=== PATIENT | female | born 1980 | race Caucasian/White ===

== ENCOUNTER 2023-05-05 19:25 | Outpatient (REF) | payer OTHER, SELFPAY ==
[2023-05-11 14:08] LABS: Age Gdln ACOG Testing Note (.); HPV Aptima Negative (Negative); IGP, Aptima HPV, rfx 16/18,45 Note (.)
== END 2023-05-05 19:26 | disposition home or self-care (01) ==
LOC: LAB 19:25
PROVIDERS: Visit Provider Physician Assistant
DX: Z01.419 Encounter for gynecological examination (general) (routine) without abnormal findings (principal)
CPT/HCPCS: 87624; G0145

== ENCOUNTER 2023-05-13 08:04 | Outpatient (OUT) | payer OTHER, SELFPAY ==
--- NOTE | 2023-05-13 08:07 | MM_ITS ---
Patient Name: LEXUS DAVIDSON MR#: [id number] : 1980 Exam Date: 05/13/2023 Ordering Doctor: ARIEL JIM . RADIOLOGY REPORT PROCEDURE: MM TOMOSYNTHESIS SCREENING BI COMPARISON: MG MAMM SCREEN 3D [place] CAD, 11/16/2020. INDICATIONS: screening Calculator Name NCI Breast Cancer Risk Assessment Tool 5 Year Breast Cancer Risk Not Reported. Lifetime Breast Cancer Risk Not Reported. Personal Breast Cancer No Personal Ovarian Cancer No Treatments None Family Cancers None LOCATION: [facility] BREAST COMPOSITION: Scattered areas fibroglandular density. FINDINGS: DIAGNOSTIC CATEGORY 2--BENIGN FINDING. NO CHANGE FROM COMPARISON. Scattered benign-appearing nodules are present. Scattered benign-appearing calcifications are present. Scattered benign-appearing lymph nodes are present. RIGHT BREAST: No significant suspicious finding. LEFT BREAST: No significant suspicious finding. RECOMMENDATIONS: ROUTINE MAMMOGRAM AND CLINICAL EVALUATION IN 12 MONTHS. PLEASE NOTE: A NORMAL MAMMOGRAM DOES NOT EXCLUDE THE POSSIBILITY OF BREAST CANCER. A CLINICALLY SUSPICIOUS PALPABLE LUMP SHOULD BE BIOPSIED. Dictated by: Neil Padilla MD on 05/13/2023 at 11:26 Approved by: Neil Padilla MD on 05/13/2023 at 11:27
--- OUTSIDE RECORDS SUMMARY | 2023-05-13 08:07 | XMS_ITS | CCD ---
Author Name Unknown Address [address] [place] [address] Organization [facility] Care Team Providers Care Recorder Of Deeds Name Role Phone Jose Petersen Unavailable Unavailable NEGRITA BEAN Unavailable Unavailable Jose Petresen Unavailable Unavailable NEGRITA BEAN Unavailable Unavailable DR MEGAN ELIZABETH Primary Care Unavailable AMBER COMBS Consulting Unavailable AMBER COMBS Attending Unavailable AMBER COMBS Admitting Unavailable BRUCE JIM Attending Unavailable Allergies Allergy Classification Reported Allergen(s) Allergy Type Date of Onset Reaction(s) Facility (1 source) Clarithromycin Drug Allergy The [facility] Repository Problems Active Problems Problem Classification Problem Date Documented Da te Episodic/Chronic Unclassified (3 sources) CONTACT W/AND (SUSP) EXPOS COVID-19; Translations: [CONTACT W/AND (SUSP) EXPOS COVID-19] Onset: 01-23-2022 Past or Other Problems Problem Classification Problem Date Documented Da te Episodic/Chronic Unclassified (1 source) CONTACT W/AND (SUSP) EXPOS COVID-19; Translations: [CONTACT W/AND (SUSP) EXPOS COVID-19] Onset: 01-22-2022 Results Test Name Value Interpretation Reference Range Facil ity Covid-19 PCR (CVDTBH)on 12-25 SARS-CoV-2 (COVID-19) RNA ERASMO+probe Ql (Unsp spec) Not detected Normal NOT DETECTED The [facility] Comment on above: Result Comment: When diagnostic testing is negative, the possibility of a false negative should be considered in the context of a patient's recent exposures and the presence of clinical signs and symptoms consistent with SARS-CoV-2. This test is not yet approved or cleared by the [place] FDA. When there are no FDA-approved or cleared tests available, and other criteria are met, FDA can make tests available under an emergency access mechanism called an Emergency Use Authorization (EUA). The EUA for this test is supported by the [place]edded [employer] [place] of Health and Human Service's declaration that circumstances exist to justify the emergency use of in vitro diagnostics for the detection and/or diagnosis of the virus that causes COVID-19. This EUA will remain in effect for the duration of the COVID-19 declaration justifying emergency of IVDs, unless it is terminated or revoked by the FDA (after which the test may no longer be used). Performed By: #### C [facility] #### [facility] Laboratory [address] [address] [address] Renu Clark Encounters Encounter Date Encounter Type Care Provider Facility Start: 05-05-2023 End: 05-05-2023 ambulatory BRUCE JIM Not Available Start: 01-22-2022 End: 01-22-[address] DOCTOR ELIZABETH Facility: Start: 05-11-2017 End: 05-12-2017 [facility] Payers Date Payer Category Payer [employer] ( and others) [id number] 1980 Unknown [id number] 1980 Unknown [id number] 1959 [employer] ( and others) [id number] Summary Purpose Family History No Family History Records FoundNo Family History Records FoundNo Family History Records Found Advance Directives No Advanced Directives Records FoundNo Advanced Directives Records FoundNo Advanced Directives Records Found Additional Source Comments INFORMATION SOURCE (unrecogn ized section and content) DATE CREATED AUTHOR 11/17/2017 [facility] DATE CREATED AUTHOR AUTHOR'S ORGANIZ ATION 05/17/2022 [facility] DATE CREATED AUTHOR AUTHOR'S ORGANIZ ATION 05/07/2023 [facility] Specialists EPIC FOR RECORDS PERTAINING TO PATIENTS WHO ARE OR HAVE BEEN ENROLLED IN A CHEMICAL DEPENDENCY/SUBSTANCEABUSE PROGRAM, SOME INFORMATION MAY BE OMITTED. This clinical summary was aggregated from multiple sources. Caution should be exercised in using it in the provision of clinical care. This summary normalizes information from multiple sources, and as a consequence, information in this document may materially change the coding, format and clinical context of patient data. In addition, data may be omitted in some cases. CLINICAL DECISIONS SHOULD BE BASED ON THE PRIMARY CLINICAL RECORDS. [employer] [facility]. provides no warranty or guarantee of the accuracy or completeness of information in this document.
== END 2023-05-13 08:05 | disposition home or self-care (01) ==
LOC: MAMMO 08:05
PROVIDERS: Visit Provider Physician Assistant
DX: Z12.31 Encounter for screening mammogram for malignant neoplasm of breast (principal)
CPT/HCPCS: 77063; 77067

== ENCOUNTER 2023-12-16 09:17 | Outpatient (OUT) | payer OTHER, SELFPAY ==
--- OUTSIDE RECORDS SUMMARY | 2023-12-16 09:25 | XMS_ITS | CCD ---
Author Organization [facility] Care Team Providers Care Precision Instrument And Tool Maker Name Role Phone DenisshondaJose das Unavailable Unavailable RAWLSNEGRITA KELLY Unavailable Unavailable Jose Petersen Unavailable Unavailable GENEVA NEGRITA Unavailable Unavailable DR MEGAN ELIZABETH Primary Care Unavailable AMBER COMBS Consulting Unavailable AMBER COMBS Attending Unavailable AMBER COMBS Admitting Unavailable LINA DELGADO Attending Unavailable BRUCE JIM Attending Unavailable Allergies Allergy Classification Reported Allergen(s) Allergy Type Date of Onset Reaction(s) Facility (1 source) Clarithromycin Drug Allergy The [facility] Repository Problems Active Problems Problem Classification [...] spec) Not detected Normal NOT DETECTED [facility] Comment on above: Result Comment: When diagnostic [...] for this test is supported by the [place] of Health and Human Service's declaration that [...] longer be used). Performed By: #### C [facility] #### [facility] [address] [address] [address] Renu Clark Encounters Encounter Date Encounter Type Care Provider Facility Start: 08-25-2023 End: 08-25-2023 ambulatory LINA DELGADO Not Available Start: 05-05-2023 End: 05-05-2023 ambulatory BRUCE JIM Not Available Start: 01-22-2022 End: 01-22-[address] DOCTOR ELIZABETH Facility: Start: 05-11-2017 End: 05-12-2017 Ambulatory Jose Petersen Facility:[facility] Payers Date Payer Category Payer [employer] ( and others) [id number] 1980 Unknown [id number] 1980 Unknown [id number] 1980 Unknown [id number] 1959 [employer] ( and others) [id number] Summary Purpose Family History No Family History Records FoundNo Family History Records FoundNo Family History Records Found Advance Directives No Advanced Directives Records FoundNo Advanced Directives Records FoundNo Advanced Directives Records Found Additional Source Comments INFORMATION SOURCE (unrecogn ized section and content) DATE CREATED AUTHOR [facility] DATE CREATED AUTHOR AUTHOR'S ORGANIZ ATION 05/17/2022 [facility] DATE CREATED AUTHOR AUTHOR'S ORGANIZ ATION 08/26/2023 [facility] dicri Specialists EPIC FOR RECORDS PERTAINING TO PATIENTS [...] BE BASED ON THE PRIMARY CLINICAL RECORDS. [facility]. provides no warranty or guarantee of the accuracy or completeness of information in this document.
--- NOTE | 2023-12-16 09:27 | XR_ITS ---
The [address] [address] Patient Name: LEXUS DAVIDSON MRN: [id number] date: 1980 Sex: F Assigned Patient Location: [facility] Current Patient Location: Accession/Order Number: [id number] Exam Date: 12/16/2023 09:35 Report Date: 12/17/2023 07:21 At the request of: LOREN SINGH Procedure: XR ankle LT min 3V PROCEDURE: XR ankle LT min 3V COMPARISON: None. HISTORY: Acute Left Ankle Pain M25.572, Achilles Tendonitis Left FINDINGS: BONES:No acute fracture or dislocation. Minimal plantar enthesopathic spurring of the calcaneus SOFT TISSUES:Negative. No visible soft tissue swelling. EFFUSION:None visible. OTHER: Negative. XR/XR ankle LT min 3V IMPRESSION: No acute abnormality Electronically authenticated by: SCOTTY ALMEIDA Date: 12/17/2023 07:21
== END 2023-12-16 09:18 | disposition home or self-care (01) ==
PROVIDERS: Visit Provider Personal Emergency Response Attendant
DX: M25.572 Pain in left ankle and joints of left foot (principal); M76.62 Achilles tendinitis, left leg
CPT/HCPCS: 73610

== ENCOUNTER 2023-12-17 14:31 | Outpatient (OUT) | payer OTHER, SELFPAY ==
--- NOTE | 2023-12-17 14:34 | MR_ITS ---
The [address] [address] Patient Name: LEXUS DAVIDSON MRN: [id number] date: 1980 Sex: F Assigned Patient Location: MRI Current Patient Location: MRI Accession/Order Number: [id number] Exam Date: 12/17/2023 14:45 Report Date: 12/17/2023 16:24 At the request of: LOREN SINGH Procedure: MR ankle LT wo con EXAM: MR ankle LT wo con HISTORY: Acute Left Ankle Pain M28.572. Pain in the region of the Achilles tendon. The patient ran 4 days ago and had a twisting injury to the left ankle the following day feeling a pop and pain along the posterior aspect of ankle. History of prior partial Achilles injury. COMPARISON: Ankle x-rays from 12/16/2023. TECHNIQUE: Multiplanar and multisequence imaging of the left ankle was performed without contrast. FINDINGS: No acute fracture is identified in the ankle or visualized foot. The distal tibia and fibula are intact. There is no OCD lesion involving the talar dome. No calcaneal stress fracture is identified. There is relative preservation of the joint spaces in the ankle and foot. The tarsometatarsal alignment appears anatomic although not included on the axial images. There is mild thickening and heterogeneous intermediate signal of the mid fibers of the Achilles tendon consistent with moderate tendinopathy. No focal Achilles tendon tear is identified. There is a small amount of fluid in the retrocalcaneal bursa. There is also mild edema in Kager's fat. No focal peroneal tendon tear is identified. The flexor and extensor tendons appear intact including the posterior tibialis tendon. A small amount of fluid tracks along the posterior tibialis tendon. There is subtle intermediate signal and irregularity of the anterior talofibular ligament consistent with a prior low-grade sprain. The calcaneofibular ligament, posterior talofibular ligament and superficial and deep components of the deltoid ligament appear intact. There is no cystic or solid mass in the region of the tarsal tunnel. There is no acute abnormality involving the plantar fascia. There is a small to moderate plantar calcaneal spur. MR/MR ankle LT wo con IMPRESSION: 1. There is moderate tendinopathy of the mid fibers of the Achilles tendon with no focal Achilles tendon tear. There is edema in the adjacent Kager's fat and a small amount of fluid in the retrocalcaneal bursa. 2. No acute bony abnormality involving the ankle or foot. There is no OCD lesion involving the talar dome. 3. Prior low-grade sprain of the anterior talofibular ligament. 4. A small amount of fluid tracks along the posterior tibialis tendon and correlation for clinical findings of mild tenosynovitis would be helpful. Electronically authenticated by: JEANNETTE SAM Date: 12/17/2023 16:24
--- OUTSIDE RECORDS SUMMARY | 2023-12-17 14:49 | XMS_ITS | CCD ---
Author Organization [facility] Care Team Providers Care Marketing Co Op Name Role Phone DenisshondaJose das Unavailable Unavailable RAWLSNEGRITA KELLY Unavailable Unavailable Jose Petersen Unavailable Unavailable GENEVA NEGRITA Unavailable Unavailable DR MEGAN ELIZABETH Primary Care Unavailable AMBER COMBS Consulting Unavailable AMBER COMBS Attending Unavailable AMBER COMBS Admitting Unavailable LINA DELGADO Attending Unavailable BRUCE JIM Attending Unavailable Allergies Allergy Classification Reported Allergen(s) Allergy Type Date of Onset Reaction(s) Facility (1 source) Clarithromycin Drug Allergy The [facility] Repository Problems Active Problems Problem Classification Problem [...] spec) Not detected Normal NOT DETECTED [facility] Comment on above: Result Comment: When diagnostic [...] for this test is supported by the [place] of Health and Human Service's declaration that [...] longer be used). Performed By: #### C [facility] #### [facility] [address] [address] [address] Renu Clark Encounters Encounter Date Encounter Type Care Provider Facility Start: 08-25-2023 End: 08-25-2023 ambulatory LINA DELGADO Not Available Start: 05-05-2023 End: 05-05-2023 ambulatory BRUCE JIM Not Available Start: 01-22-2022 End: 01-22-[address] DOCTOR ELIZABETH Facility: Start: 05-11-2017 End: 05-12-2017 Ambulatory Jose Petersen Facility:[facility] Payers Date Payer Category Payer [employer] ( [employer] others) [id number] 1980 Unknown [id number] 1980 Unknown [id number] 1980 Unknown [id number] 1959 [employer] ( and others) [id number] Summary Purpose Family History No Family History Records FoundNo Family History Records FoundNo Family History Records Found Advance Directives No Advanced Directives Records FoundNo Advanced Directives Records FoundNo Advanced Directives Records Found Additional Source Comments INFORMATION SOURCE (unrecogn ized section and content) DATE CREATED AUTHOR [facility]/17/[facility] DATE CREATED AUTHOR AUTHOR'S ORGANIZ ATION 05/17/2022 [facility] DATE CREATED AUTHOR AUTHOR'S ORGANIZ ATION 08/26/2023 [facility] dicil Specialists EPIC FOR RECORDS PERTAINING TO [...] BE BASED ON THE PRIMARY CLINICAL RECORDS. [facility]. provides no warranty or guarantee of the accuracy or completeness of information in this document.
== END 2023-12-17 14:32 | disposition home or self-care (01) ==
LOC: MRI 14:31
PROVIDERS: Visit Provider Personal Emergency Response Attendant
DX: M25.572 Pain in left ankle and joints of left foot (principal); M76.62 Achilles tendinitis, left leg
CPT/HCPCS: 73721

== ENCOUNTER 2024-01-06 14:29 | Outpatient (RCR) | payer OTHER, SELFPAY | END 2024-02-09 16:30 | disposition home or self-care (01) | LOC: PT 14:29 | PROVIDERS: Visit Provider Podiatrist Foot & Ankle Surgery | DX: M76.822 Posterior tibial tendinitis, left leg (principal); M76.62 Achilles tendinitis, left leg | CPT/HCPCS: 20561; 97026; 97035; 97110; 97113; 97161 ==

== ENCOUNTER 2024-03-14 10:14 | Outpatient (OUT) | payer OTHER, SELFPAY ==
--- OUTSIDE RECORDS SUMMARY | 2024-03-14 10:28 | XMS_ITS | CCD ---
Author Organization [facility] Care Team Providers Care Wedger Machine Name Role Phone DenisshondaJose das Unavailable Unavailable RAWLSNEGRITA KELLY Unavailable Unavailable Jose Petersen Unavailable Unavailable GENEVA, NEGRITA Unavailable Unavailable DR MEGAN ELIZABETH Primary Care Unavailable AMBER COMBS Consulting Unavailable AMBER COMBS Attending Unavailable AMBER COMBS Admitting Unavailable LINA DELGADO Attending Unavailable LOREN SINGH Attending Unavailable BRUCE JIM Attending Unavailable Allergies Allergy Classification Reported Allergen(s) Allergy Type Date of Onset Reaction(s) Facility (1 source) Clarithromycin Drug Allergy [facility] Repository Problems Active Problems Problem Classification [...] spec) Not detected Normal NOT DETECTED [facility] Comment on above: Result Comment: When [...] for this test is supported by the [place] of Health and Human Service's declaration that [...] longer be used). Performed By: #### [facility] #### [facility] [address] [place] [address] Dr. Renu Clark Encounters Encounter Date Encounter Type Care Provider Facility Start: 12-16-2023 End: 12-16-2023 ambulatory LOREN SINGH Not Available Start: 08-25-2023 End: 08-25-2023 ambulatory LINA DELGADO Not Available Start: 05-05-2023 End: 05-05-2023 ambulatory BRUCE JIM Not Available Start: 01-22-2022 End: 01-22-[address] DOCTOR ELIZABETH Facility: Start: 05-11-2017 End: 05-12-2017 Ambulatory Jose Petersen [place] Payers Date Payer Category Payer [employer] ( [employer] others) [id number] 1980 Unknown [id number] 1980 Unknown [id number] 1980 Unknown [id number] 1980 Unknown [id number] 1959 [employer] ( and others) [id number] Summary Purpose Family History No Family History Records FoundNo Family History Records FoundNo Family History Records Found Advance Directives No Advanced Directives Records FoundNo Advanced Directives Records FoundNo Advanced Directives Records Found Additional Source Comments INFORMATION SOURCE (unrecogn ized section and content) DATE CREATED AUTHOR 11/17/2017 [facility] DATE CREATED AUTHOR AUTHOR'S ORGANIZ ATION 05/17/2022 [facility] DATE CREATED AUTHOR AUTHOR'S ORGANIZ ATION 12/18/2023 [facility] FOR RECORDS PERTAINING TO PATIENTS WHO ARE [...] BE BASED ON THE PRIMARY CLINICAL RECORDS. [facility] [employer] provides no warranty or guarantee of the accuracy or completeness of information in this document.
--- NOTE | 2024-03-14 10:44 | PM.PRESUREVA ---
History of Present Illness History of Present Illness Chief complaint: achilles tendonitis left leg, ankle impingement Narrative: Patient presents for preadmission testing. Please see HPI from Dr. Padilla dated February 23, 2024. Review of Systems ROS Narrative Please see ROS from Dr. Padilla dated 02/23/2024. [facility] Medical History (Updated 03/14/24 @ 10:30 by Elmira Melvin NP) Impingement of left ankle joint ?M25.872 - Other specified joint disorders, left ankle and foot (ICD-10) Ovarian torsion ?N83.519 - Torsion of ovary and ovarian pedicle, unspecified side (ICD-10) Achilles tendinitis, left leg ?M76.62 - Achilles tendinitis, left leg (ICD-10) COVID-19 ?U07.1 - COVID-19 (ICD-10) Migraine ?G43.909 - Migraine, unspecified, not intractable, without status migrainosus (ICD-10) Postoperative nausea and vomiting ?R11.2 - Nausea with vomiting, unspecified (ICD-10) ?Z98.890 - Other specified postprocedural states (ICD-10) Surgical History (Updated 03/14/24 @ 10:30 by Elmira Melvin NP) History of tonsillectomy and adenoidectomy ?Z90.89 - Acquired absence of other organs (ICD-10) History of arthroplasty of knee ?Z96.659 - Presence of unspecified artificial knee joint (ICD-10) History of arthroplasty of knee ?Z96.659 - Presence of unspecified artificial knee joint (ICD-10) History of right oophorectomy ?Z90.721 - Acquired absence of ovaries, unilateral (ICD-10) History of hysterectomy ?Z90.710 - Acquired absence of both cervix and uterus (ICD-10) History of tubal ligation ?Z98.51 - Tubal ligation status (ICD-10) Family History (Updated 03/14/24 @ 10:30 by Elmira Melvin NP) Son Hypotension after procedure Other Cancer Family history of COPD (chronic obstructive pulmonary disease) Family history of aneurysm Family history of diabetes mellitus Family history of myocardial infarction Social History (Updated 03/14/24 @ 10:24 by Elmira Melvin NP) Within the past year, how often did you have a drink containing alcohol: monthly or less Smoking status: Never smoker Non-prescribed substance use: denies use Previous occupational history: RN front desk supervisor Highest level of school completed/degree received: Master's degree Meds Home Medications and Allergies Home Medications ?Medication ?Instructions ?Recorded ?Confirmed ?Type multivitamin (Daily Multi-Vitamin 1 tab PO DAILY 03/14/24 03/14/24 History tablet) rimegepant 75 mg disintegrating 75 mg PO DAILY PRN migraine 03/14/24 03/14/24 History tablet (Nurtec ODT) headache Allergies Allergy/AdvReac Type Severity Reaction Status Date / Time No Known Drug Allergies Allergy Verified 03/14/24 10:22 Exam Narrative Exam Narrative: Constitutional: Awake, alert, comfortable, well-appearing, nontoxic, interactive, vital signs as charted Head: Normocephalic, atraumatic Neck: Supple, normal appearance, normal range of motion, no meningeal signs, no lymphadenopathy Respiratory: No respiratory distress, breath sounds clear Cardiovascular: Regular rate and rhythm, strong and regular heart tones Skin: No rashes or induration, no lesions, only visible skin inspected Neuro: No neurological deficits, normal sensation Psychiatric: Oriented ?3, normal affect Assessment and Plan Assessment and Plan (1) Achilles tendinitis, left leg: (2) Impingement of left ankle joint: Plan Left gastrocnemius recession, Achilles tendon debridement/repair, exostectomy of posterior talus for ankle impingement scheduled with Dr. Padilla March 24, 2024.
== END 2024-03-14 10:15 | disposition home or self-care (01) ==
LOC: PST 10:16
PROVIDERS: Visit Provider Podiatrist Foot & Ankle Surgery
DX: Z01.818 Encounter for other preprocedural examination (principal); M76.62 Achilles tendinitis, left leg; M25.872 Other specified joint disorders, left ankle and foot
CPT/HCPCS: G0463

== ENCOUNTER 2024-03-24 07:15 | Day surgery (SDC) | payer OTHER, SELFPAY ==
[2024-03-14 10:38] VITALS: BP 126/79; PULSE 89; TEMP 36.4; O2SAT 99; BMI 26.0
[2024-03-24] VITALS (12 sets, daily range): BP systolic 113–134; BP diastolic 73–91; PULSE 69–113; TEMP 36.2–36.3; O2SAT 92–99; BMI 25.5
--- OUTSIDE RECORDS SUMMARY | 2024-03-24 07:18 | XMS_ITS | CCD ---
Author Organization [facility] Care Team Providers Care Certified Dietary Manager Name Role Phone DenisshondaJose das Unavailable Unavailable [...] Facility (1 source) Clarithromycin Drug Allergy [facility] Repository Problems Active Problems Problem Classification Problem [...] spec) Not detected Normal NOT DETECTED [facility] Comment on above: Result Comment: When diagnostic [...] for this test is supported by the [place] of Health and Human Service's declaration that [...] longer be used). Performed By: #### C [facility] #### [facility] [address] [place] [address] Dr. Renu Clark Encounters Encounter Date Encounter Type Care Provider Facility Start: 12-16-2023 End: 12-16-2023 ambulatory LOREN SINGH Not Available Start: 08-25-2023 End: 08-25-2023 ambulatory LINA DELGADO Not Available Start: 05-05-2023 End: 05-05-2023 ambulatory BRUCE JIM Not Available Start: 01-22-2022 End: 01-22-[address] DOCTOR ELIZABETH Facility: Start: 05-11-2017 End: 05-12-2017 Ambulatory Jose Petersen Facility:[facility] Payers Date Payer Category Payer [employer] ( and others) [id number] 1980 Unknown [id number] 1980 Unknown [id number] 1980 Unknown [id number] 1980 Unknown [id number] 1959 [employer] ( and others) [id number] Summary Purpose Family History No Family History Records FoundNo Family History Records FoundNo Family History Records Found Advance Directives No Advanced Directives Records FoundNo Advanced Directives Records FoundNo Advanced Directives Records Found Additional Source Comments INFORMATION SOURCE (unrecogn ized section and content) DATE CREATED AUTHOR 11/17/2017 Chua Fallon [facility] DATE CREATED AUTHOR AUTHOR'S ORGANIZ ATION 05/17/2022 [facility] [place] [facility] DATE CREATED AUTHOR AUTHOR'S ORGANIZ ATION 12/18/2023 [facility] FOR RECORDS PERTAINING TO PATIENTS WHO ARE [...] BE BASED ON THE PRIMARY CLINICAL RECORDS. [facility] [employer] provides no warranty or guarantee of the accuracy or completeness of information in this document.
[2024-03-24 07:28] LABS: Basophils Absolute Auto 0.1 10^3/uL (0.0-0.1); Basophils Percent Auto 0.8 % (0.2-2.0); Eosinophils Absolute Auto 0.1 10^3/uL (0.0-0.7); Eosinophils Percent Auto 1.7 % (0.9-7.0); Hematocrit 40.6 % (36.0-48.0); Hemoglobin 13.4 g/dL (12.0-16.0); Immature Granulocytes Abs Auto 0.02 10^3/uL (0.00-0.03); Immature Granulocytes Pct Auto 0.3 % (0.0-0.5); Lymphocytes Absolute Auto 2.9 10^3/uL (1.2-3.8); Lymphocytes Percent Auto 40.4 % (20.5-60.0); Mean Corpuscular Hemoglobin 29.3 pg (26.7-34.0); Mean Corpuscular Volume 88.8 fL (81.0-99.0); Mean Platelet Volume 10.2 fL (9.5-13.5); Monocytes Absolute Auto 0.5 10^3/uL (0.3-0.8); Monocytes Percent Auto 7.1 % (1.7-12.0); Neutrophils Absolute Auto 3.5 10^3/uL (1.4-6.5); Neutrophils Percent Auto 49.7 % (43.0-75.0); Platelet Count 266 10^3/uL (150-450); Red Blood Count 4.57 10^6/uL (4.20-5.40); White Blood Count 7.1 10^3/uL (4.0-11.0)
[2024-03-24] MEDS: LACTATED RINGER'S SOLUTION 1,000 ML 50 ML IV (08:41)
[2024-03-24] MEDS: SCOPOLAMINE 1 MG/3 DAYS TRANSDERM PATCH 1 PATCH TD (08:43)
[2024-03-24 08:46] LABS: Glucometer 95 mg/dL (74-106)
[2024-03-24] MEDS: FAMOTIDINE/PF 20 MG/2 ML VIAL IV (08:48)
--- NOTE | 2024-03-24 09:39 | PC.NURSE ---
917 TIME OUT PERFORMED DEISY JONES, RN 0917 DOCTOR LOOING FOR SITE OF INJECTION. 0918 50 MCG FENTYNAL , 2 MG VERSED GIVEN BEFOR NSERTION OF NEEDLE FOR BLOCK 09 INJECTION OF ROPIVACINE STARTED AND PROCEDURE COMPLETED AT 0925. PATIENT TOLERATED VERY WELL.
[2024-03-24] MEDS: CEFAZOLIN SODIUM 2 GM/50 ML D5W PREMIX IV (10:04)
[2024-03-24] MEDS: BETAMETHASONE ACE/BETAMETHASONE SOD PHOS 30 MG/5 ML 6 MG INJ (10:52)
--- NOTE | 2024-03-24 11:04 | P.ORON_ITS ---
Brief Operative Note Date of procedure: 03/24/24 Pre-op diagnosis general: Left Achilles tendinitis, equinus and posterior ankle impingement Post-op diagnosis: same as pre-op Procedure: Procedure performed: Left posterior ankle arthrotomy with synovectomy, gastrocne mius recession and tenolysis of Achilles tendon Indications for procedure: Patient is a healthy 43-year-old female who has had many months of pain and dysfunction associated with her left Achilles tendon and posterior ankle which is affected activities of daily living and recreation despite nonsurgical care. Nonsurgical care included but not limited to formal physical therapy with modalities, home stretching program, cam boot immobilization, NSAIDs and shoe and activity modification. Due to her failure to respond to nonsurgical care and MRI was obtained which showed moderate Achilles tendinosis without tear, retrocalcaneal bursitis and inflammation with impingement of the posterior ankle joint. Patient wished undergo surgical intervention given failure to respond to nonsurgical care. Intraoperative findings: Ankle joint dorsiflexion was to neutral but not past with the knee flexed and extended. Acute and chronic synovitis noted in the posterior ankle joint causing soft tissue impingement. Achilles tendon mildly thickened without tear. Mild adhesions around the Achilles tendon as well. Procedure in detail patient was identified in preoperative holding by myself which time correct side and site were marked and consent was obtained. Preoperative antibiotics were started and patient was brought back in the operating theater and was then intubated. She was then flipped onto the OR table in a well-padded prone position. The left lower extremity was then prepped and draped in usual sterile fashion with a thigh tourniquet. Formal timeout was performed and the foot and ankle were exsanguinated and tourniquet was inflated. Longitudinal incision was placed over the central aspect of the gastroc aponeurosis. Combination of sharp and blunt dissection with all bleeders being coagulated was performed to identify the gastroc aponeurosis. The sural nerve and vein were identified and protected throughout the procedure. The synovial layer was meticulously reflected isolating the aponeurosis which was then transected using a scalpel. Ankle joint dorsiflexion improved to 10 degrees past neutral with the knee extended. Surgical site was irrigated with copious saline. Incision was then placed adjacent to the Achilles tendon on the medial aspect. Combination of sharp and blunt dissection gained access to the peritenon which was carefully reflected and bluntly released releasing all adhesions. Then an 18-gauge needle was used to perforate the Achilles tendon multiple times further releasing any adhesions. No tear was identified. Surgical site was irrigated with copious saline. Then the incision was extended proximally and distally and further deep dissection was performed to gain access to the posterior ankle capsule. The capsule was released sharply then bluntly and a rongeur was used to remove all inflammatory tissue from the posterior aspect of the ankle. The ankle was placed to range of motion ensuring all impingement tissue as well as synovitis have been excised. Surgical site was irrigated with copious saline and the tourniquet was deflated with a prompt response. Incisions were then closed in layers. A dry sterile dressing followed by a multilayer modified Bender posterior splint was then placed. Patient tolerated the procedure and anesthesia well and brisk capillary refill to the left toes Postoperative plan: Discharge home under 's care. Nonweightbearing left foot Prescriptions were sent to her pharmacy using my office EMR Follow-up in my office in 1 week. Implants: None Anesthesia: regional and General-ET Surgeon: Keenan Padilla Estimated blood loss (mL): 10 Tourniquet time (min): 18 Pathology: none sent Condition: stable Disposition: PACU
[2024-03-24 11:42] LABS: Glucometer 94 mg/dL (74-106)
--- NOTE | 2024-03-24 11:48 | PC.NURSE ---
Patient states no pain but can feel the heel was worked on. When patient woke up she was extremely nauseated dry heaved and there after states she felt better. PRN order of haldol was put on chart if patient needed for nausea but patient is awake and states she feels better now and does not need it.
== END 2024-03-24 12:35 | disposition home or self-care (01) ==
PROVIDERS: Anesthesiology; Visit Provider Podiatrist Foot & Ankle Surgery
PROC: (CPT 01474; principal; 2024-03-24 09:30)
DX: M76.62 Achilles tendinitis, left leg (principal); M25.872 Other specified joint disorders, left ankle and foot; Z90.710 Acquired absence of both cervix and uterus; Z90.721 Acquired absence of ovaries, unilateral; Z98.51 Tubal ligation status
CPT/HCPCS: 01474; 01480; 27625; 27687; 36415; 64445; 85025; J0171; J0665; J0690; J0702; J1100; J2250; J2405; J2704; J3010

== ENCOUNTER 2024-05-10 19:34 | Outpatient (REF) | payer OTHER, SELFPAY ==
--- OUTSIDE RECORDS SUMMARY | 2024-05-10 19:38 | XMS_ITS | CCD ---
Author Organization [facility] Care Team Providers Care Log Marker Name Role Phone DenisshondaJose das Unavailable Unavailable RAWLSNEGRITA KELLY Unavailable Unavailable Jose Petersen Unavailable Unavailable NEGRITA BEAN Unavailable Unavailable DR MEGAN ELIZABETH Primary Care Unavailable AMBER COMBS Consulting Unavailable AMBER COMBS Attending Unavailable AMBER COMBS Admitting Unavailable LINA DELGADO Attending Unavailable LOREN SINGH Attending Unavailable BRUCE JIM Attending Unavailable Allergies Allergy Classification Reported Allergen(s) Allergy Type Date of Onset Reaction(s) Facility (1 source) Clarithromycin Drug Allergy [facility] Repository Problems Active Problems Problem Classification Problem [...] spec) Not detected Normal NOT DETECTED [facility] Comment on above: Result Comment: When diagnostic [...] for this test is supported by the [employer] of Health and Human Service's declaration that [...] longer be used). Performed By: #### C [facility] #### [facility] Laboratory [address] [place] [address] Dr. Renu Clark Encounters Encounter Date Encounter Type Care Provider Facility Start: 12-16-2023 End: 12-16-2023 ambulatory LOREN SINGH Not Available Start: 08-25-2023 End: 08-25-2023 ambulatory LINA DELGADO Not Available Start: 05-05-2023 End: 05-05-2023 ambulatory BRUCE JIM Not Available Start: 01-22-2022 End: 01-22-[address] DOCTOR ELIZABETH Facility: Start: 05-11-2017 End: 05-12-2017 Ambulatory Jose Petersen Facility:[facility] Payers Date Payer Category Payer [employer] others) [id number] 1980 Unknown [id number] 1980 Unknown [id number] 1980 Unknown [id number] 1980 Unknown [id number] 1959 [employer] ( and others) [id number] Summary Purpose Family History No Family History Records FoundNo Family History Records FoundNo Family History Records Found Advance Directives No Advanced Directives Records FoundNo Advanced Directives Records FoundNo Advanced Directives Records Found Additional Source Comments INFORMATION SOURCE (unrecogn ized section and content) DATE CREATED AUTHOR 11/17/2017 Hcua Ruben [facility] DATE CREATED AUTHOR AUTHOR'S ORGANIZ ATION 05/17/2022 [facility] [place] [facility] DATE CREATED AUTHOR AUTHOR'S ORGANIZ ATION 12/18/2023 [facility] FOR RECORDS PERTAINING TO PATIENTS WHO [...] BE BASED ON THE PRIMARY CLINICAL RECORDS. [facility] [employer] provides no warranty or guarantee of the accuracy or completeness of information in this document.
[2024-05-19 07:07] LABS: Age Gdln ACOG Testing Note (.); HPV Aptima Negative (Negative); IGP, Aptima HPV, rfx 16/18,45 Note (.)
== END 2024-05-10 19:35 | disposition home or self-care (01) ==
LOC: LAB 19:34
PROVIDERS: Visit Provider Physician Assistant
DX: Z01.419 Encounter for gynecological examination (general) (routine) without abnormal findings (principal); Z90.710 Acquired absence of both cervix and uterus
CPT/HCPCS: 87624; 88175

== ENCOUNTER 2025-03-23 07:35 | Outpatient (OUT) | payer OTHER, SELFPAY ==
--- OUTSIDE RECORDS SUMMARY | 2024-03-24 04:30 | XMS_ITS ---
Author Organization [facility] in [place] Address [address] [place] [address] Care Team Providers Care Returned Telephone Equipment Appraiser Name Role Phone None, Unknown or Primary Care Provider Unavailab Keenan Nicole Unavailable [phone] REASON FOR VISIT LT gastroc, exostectomy talus Encounters Encounter Location Date Provider Diagnosis [facility] OUTPATIENT [facility] [place] [address] 03/24/2024 Keenan Padilla Plan Of Treatment No Information Progress Notes * Karen FOSTERDOB:[birth year] (44 yo F)Acc No.[id number]:03/24/2024 UNLOCKED PROGRESS NOTE Patient:?Karen FOSTRE :?eKenan Padilla DPM, MSDOB:1980???Age: 43 Y???Sex:FemaleDate:4Phone:[phone]:[address], [place], [id number]:Unknown or NoneCheck Out:09:04 AM EST * * Electronic signature of Keenan Padilla DPM on 03/23/2025 at 07:38 AM EDTSign off status: PendingVisit Status:?CHK (Check Out) * Provider: Sherrell Padilla DPM, MS Date: Generated for Printing/Faxing/eTransmitting on:?03/23/2025 07:38 AM EDT
--- OUTSIDE RECORDS SUMMARY | 2025-03-23 07:38 | XMS_ITS | Clinical Summary ---
Author Organization [employer] [facility] Address [id number] [address] [place] [address] Care Team Providers Care Casino Attendant Name Role Phone No Pcp, No Pcp Primary Care Provider Unavailabl e Social History Tobacco UseTypesPacks/DayYears UsedDateSmoking Tobacco: Never AssessedChildcare AnswerDate ZyssrryqQkxdyrinsObkvxhp67/12/2019EmploymentAnswerDate Recorded SukakiriicHicjvwk88/12/2019CommentsUnknownSex and Gender Information ValueDate RecordedSex Assigned at BirthNot on fileLegal BvsHseolb11/06/2015 12:07 PM EDTGender IdentityNot on fileSexual OrientationNot on file Last Filed Vital Signs Vital SignReadingTime TakenCommentsBlood Mgexvkcc197/8103 7:45 PM EDT Nytbw98058/14/2016 7:45 PM EDTTemperature--Respiratory Rate--Oxygen Saturation-- Inhaled Oxygen Concentration--Bnghya74 kg (150 lb)08/06/2015 7:45 PM EDTHeight 152.4 cm (5')08/06/2015 7:45 PM EDTBody Mass Index29.29008/06/2015 7:45 PM EDT Plan of Treatment Not on file Medical Devices Not on file Care Teams Team MemberRelationshipSpecialtyStart DateEnd Date No Pcp, [place] [address] PCP - General06/29/14
--- OUTSIDE RECORDS SUMMARY | 2025-03-23 07:38 | XMS_ITS | Encounter Summary ---
Author Organization [facility] Address [address] [place] [address] Care Team Providers Care Microbiology Director Name Role Phone Unallocated, Noms Provider Primary Care Provi malathi Encounter Details DateTypeDepartmentCare Team (Latest Contact Info)Zewbjvanwqw48/20/2023linisync Result Encounter [facility] Unsolicited Alma Jim PA [address] [place], [place] [address] Social History Tobacco UseTypesPacks/DayYears UsedDateSmoking Tobacco: NeverAlcohol UseStandard Drinks/WeekCommentsYes0 (1 standard drink = 0.6 oz pure alcohol)Caffeine intake: coffee, energy drink 1-2 cups per dayAUDIT-CAnswerDate RecordedQ1: How often do you have a drink containing alcohol?2-4 times a month05/02/2023verage Number of DrinksNot on file05/02/2023Frequency of Binge DrinkingNot on file05/02/2023 CommentsNoSex and Gender InformationValueDate RecordedSex Assigned at BirthNot on fileLegal AvoEzdpap58/15/2023 6:52 PM EDTGender IdentityNot on file Sexual OrientationNot on filedocumented as of this encounter Plan of Treatment DateTypeDepartmentCare Team (Latest Contact Info)Slxbqarnlku78/23/2025 9:00 AM ESTOffice Visit NOMStephanie GOODWIN [address] [place] [id number] Alma Jim PA [address] [place] [address] documented as of this encounter Procedures Procedure NamePriorityDate/TimeAssociated DiagnosisCommentsMM TOMOSYNTHESIS SCREENING BI05/13/2023 11:27 AM EST documented in this encounter Results * MM TOMOSYNTHESIS SCREENING BI (05/13/2023 11:27 AM EST)Anatomical Region LateralityModalityOtherSpecimen (Source)Anatomical Location / Laterality Collection Method / VolumeCollection TimeReceived Time05/13/2023 11:27 AM EST Narrative 05/13/2023 11:28 AM EST [facility] ?[address] ? [place] [address] ? Mammography Report ? Signed ? Patient: LEXUS FOSTER D ?MR#: [id number] ?? : 1980 ?Acct:[id number] ?? Age/Sex: 43 / F ?ADM Date: // ?? Loc: MAMMO ? Attending Dr: Alma Jim ? Ordering Physician: Alma Jim ?Results: ? Date of Service: 05/13/ ?Follow Up: ? Procedure(s): MM tomosynthesis screening BI ?? Accession Number(s): [id number] ? cc: Alma Jim; Physician,Non-Staff M.D. ? Patient Name: ? LEXUS DUKESHIRE ? MR#: [id number] ? : 1980 ? Exam Date: 05/13/2023 ?? Ordering Doctor: ARIEL JIM . ? RADIOLOGY REPORT ? PROCEDURE: ? MM TOMOSYNTHESIS SCREENING BI ? COMPARISON: ? MG MAMM SCREEN 3D [place] CAD, 11/16/2020. ? INDICATIONS: ? screening ? Calculator Name ? NCI Breast Cancer Risk Assessment Tool ?? 5 Year Breast Cancer Risk ? Not Reported. ?? Lifetime Breast Cancer Risk ? Not Reported. ?? Personal Breast Cancer ?No ?? Personal Ovarian Cancer ? No ?? Treatments ? None ?? Family Cancers ? None ? LOCATION: ? [facility] ? BREAST COMPOSITION: ? Scattered areas fibroglandular density. ? FINDINGS: ? DIAGNOSTIC CATEGORY 2--BENIGN FINDING. NO CHANGE FROM COMPARISON. ? Scattered benign-appearing nodules are present. ??Scattered benign-appearing ?? calcifications are present. ??Scattered benign-appearing lymph nodes are ?? present. ? RIGHT BREAST: ??No significant suspicious finding. ? LEFT BREAST: ??No significant suspicious finding. ? RECOMMENDATIONS: ? ROUTINE MAMMOGRAM AND CLINICAL EVALUATION IN 12 MONTHS. ? PLEASE NOTE: ??A NORMAL MAMMOGRAM DOES NOT EXCLUDE THE POSSIBILITY OF BREAST ?? CANCER. ??A CLINICALLY SUSPICIOUS PALPABLE LUMP SHOULD BE BIOPSIED. ? Dictated by: Neil Padilla MD on 05/13/2023 at 11:26 ? Approved by: Neil Padilla MD on 05/13/2023 at 11:27 ? Dictated By: ?Neil Padilla M.D. ? Signed By: ?05/13/23 1128 ? DD/ ? TD/TT: ? Radiology Resident: Procedure Note Radiology, Radiologist, MD - 07/29/2023 [place] [address] Mammography Report Signed Patient: LEXUS FOSTER [facility]#: [id number] : 1980Acct:[id number] Age/Sex: 43 / FADM Date: 05/13/23 Loc: MAMMO Attending Dr: Alma Jim Ordering Physician: Alma Cotoults: Date of Service: 05/13/23Follow Up: Procedure(s): MM tomosynthesis screening BI Accession Number(s): [id number] cc: Alma Jim; Physician,Non-Staff MCleopatra Patient Name: LEXUS FOSTER MR#: [id number] : 1980 Exam Date: 05/13/2023 Ordering Doctor: ARIEL JIM . RADIOLOGY REPORT PROCEDURE: MM TOMOSYNTHESIS SCREENING BI COMPARISON: MG MAMM SCREEN 3D [place] CAD, 11/16/2020. INDICATIONS: screening Calculator Name NCI Breast Cancer Risk Assessment Tool 5 Year Breast Cancer Risk Not Reported. Lifetime Breast Cancer Risk Not Reported. Personal Breast Cancer No Personal Ovarian Cancer No Treatments None Family Cancers None LOCATION: [facility] BREAST COMPOSITION: Scattered areas fibroglandular density. FINDINGS: DIAGNOSTIC CATEGORY 2--BENIGN FINDING. NO CHANGE FROM COMPARISON. Scattered benign-appearing nodules are present. Scatteredbenign-appearing calcifications are present. Scattered benign-appearing lymph nodes are present. RIGHT BREAST: No significant suspicious finding. LEFT BREAST: No significant suspicious finding. RECOMMENDATIONS: ROUTINE MAMMOGRAM AND CLINICAL EVALUATION IN 12 MONTHS. PLEASE NOTE: A NORMAL MAMMOGRAM DOES NOT EXCLUDE THE POSSIBILITY OFBREAST CANCER. A CLINICALLY SUSPICIOUS PALPABLE LUMP SHOULD BE BIOPSIED. Dictated by: Neil Padilla MD on 05/13/2023 at 11:26 Approved by: Neil Padilla MD on 05/13/2023 at 11:27 Dictated By: Neil Padilla M.D. Signed By:05/13/23 1128 DD/ 1127 TD/TT: Radiology Resident: Authorizing ProviderResult TypeResult StatusAlma Jim PACLINISYNC IMAGINGFinal Result documented in this encounter Visit Diagnoses Not on filedocumented in this encounter Care Teams Team MemberRelationshipSpecialtyStart DateEnd Date Unallocated, Noms Provider, [facility] [place] [address] PCP - GeneralFamily Medicine11/15/24documented as of this encounter
--- OUTSIDE RECORDS SUMMARY | 2025-03-23 07:38 | XMS_ITS | Patient Health Record ---
Author Organization [facility] in [place] Address [address] [place] [address] Care Team Providers Care After School Tutor Name Role Phone None, Unknown or Primary Care Provider Unavailab Keenan Nicole Unavailable [phone] LedyardKaren hughes Unavailable [phone] Allergies No Known Allergies Reason For Referral No Information Medications Medication SIG (Take, Route, Frequency, Duration) Notes Start Date End Date Status dexAMETHasone Sodium Phosphate 4 MG/ML 1.5ml-2.5ml topically with treatment up to 3 times weekly; Duration: 30 days used with iontophoresis at physical therapy 01/15/2024UnknownCephalexin 500 MG1 capsule Orally tid; Duration: 7 days 03/24/2024UnknownHYDROcodone-Acetaminophen 5-325 MG 1 tablet as needed Orally every 4 hrs; Duration: 7 days As needed 03/24/2024UnknownHYDROcodone-Acetaminophen 5-325 MG1 tablet as needed Orally every 4 hrs; Duration: 7 days03/24/2024UnknownMeloxicam 15 MG1 tablet Orally Once a day; Duration: 30 days12/18/2023UnknownIbuprofen 600 MG 1 tablet with food or milk as needed Orally Three times a day; Duration: 30 days Do not take with meloxicam 04/01/2024UnknownOndansetron HCl 4 MG1 tablet Orally every 6 hours; Duration: 7 days03/24/2024UnknownMotrinUnknownoxyCODONE HCl 5 MG1 capsule as needed Orally every 6 hrs; Duration: 2 daysPatient to have short course of oxycodone to assist with increased post op pain. She will not take the norco at the same time. 04/01/2024UnknownAspirin 325 MG1 tablet Orally bid; Duration: 30 days03/24/2024 UnknowntiZANidine HCl 2 MG 1 tablet Orally every 8 hours; Duration: 14 days As needed 04/01/2024ctive Social History Tobacco Use: Social History Observation Description Date Details (start date - stop date) Never Smoker NA - NA Tobacco Control (Standard) Question Answer Notes Tobacco use: Nonsmoker Vital Signs Heart Rate 97 /min 05/31/2024 Vxfubbcjlnc05.7 degrees Fzgolzxvxp92/07/8437Vguoimnk03 %05/31/20249597Gqrgmv77 in 05/31/20240703Kdcqmn085 lbs107/06/2023BMI25.85 kg/m205/05/2024 Encounters Encounter Location Date Provider Diagnosis [facility] ([facility]) [address] [place] [address] [place] [address] 04/01/2024 Keenan Padilla Achilles tendinitis, left leg M76.62 [facility] OUTPATIENT [facility] [place] [address] 03/24/2024 Keenan Padilla [facility] ([facility])[address] [place] [address] [place] [address]/11/2023Kimberly CullenAchilles tendinitis, left leg M76.62 ; Other specified joint disorders, left ankle and foot M25.872and Posterior tibial tendinitis, left leg M76.822[facility] ([facility])[address] [place] [address] [place] [address]/eter HighlanderAchilles tendinitis, left leg M76.62[facility] ([facility])[address] [place] [address] [place] [address]/04/2024Kimberly CullenAchilles tendinitis, left leg M76.62 ; Posterior tibial tendinitis, left leg M76.822 and Other specified joint disorders, left ankle and foot M25.872[facility] ([facility])[address] [place] [address] [place] [address]/11/2024 Peter RandyAchilles tendinitis, left leg M76.62[facility] ([facility])[address] [place] [address] [place] [address]/[facility] (PODIATRY)[address] [place] [address]/[facility] (PODIATRY)[address] [place] [address]/[facility] (PODIATRY)[address] [place] [address]/[facility] Assessments Encounter Date Diagnosis (ICD Code) Assessment Notes Treatment Notes Treatment Clinical Notes Section Notes 03/31/2024 Achilles tendinitis, left leg (I CD-10 - M76.62) The patient is 1 week status post posterior ankle arthrotomy with synovectomy, gastrocnemius recessio and tendolysis of Achilles tendon. DOS 03/24/24. She is doing very well. No evidence of infection or DVT on examination.After verbal consent, the patient was placed into a well-padded short leg cast with the ankle in slight plantarflexion.She is toremain nonweightbearing.Follow-up in 2 weeks, sooner if any issues arise. No x-rays necessary at that time. 03/31/2024Other specified joint disorders, left ankle and foot (ICD-10 - M25.872)4Achilles tendinitis, left leg (ICD-10 - M76.62)Patient is doing well and her incision is healed so sutures were discontinued. She may begin weightbearing as tolerated in a cam boot with wedges. She may remove 1 wedge per week. She will follow-up in 3 to 4 weeks no new x-rays are needed 4Achilles tendinitis, left leg (ICD-10 - M76.62)4Achilles tendinitis, left leg (ICD-10 - M76.62) The patient is 5 weeks status post left ankle arthrotomy with synvoectomy, gastrocnemius recession and tenolysis of achilles tendon, DOS 03/24/24. No evidence of infection or DVT on examination.The patient has successfully removed all Achilles wedges and is ambulating in the boot without wedges.She has been using her knee scooter at work, but has been weightbearing as tolerated at home.I encouraged her to continue wearing the boot around the house for at least another week, then she may begin to transition to normal shoes as symptoms allow.She was encouraged to remain in the boot at work until she is 12 weeks postop.Continue ankle joint range of motion exercises several times per day.Prescribed and OTC analgesia as needed.Follow-up in 3 to 4 weeks, sooner if any issues arise. No x-rays necessary at that time. 05/05/2024osterior tibial tendinitis, left leg (ICD-10 - M76.822)05/31/2024 Achilles tendinitis, left leg (ICD-10 - M76.62)Patient is doing very well after Achilles tendon surgery performed just over 2 months ago. She may continue to increase her activities as she tolerates including impact exercise. OTC pain medicine and NSAIDs as needed. Follow-up in 3 months or as pptrse8705/05/2024Other specified joint disorders, left ankle and foot (ICD-10 - M25.872)03/31/2024 Posterior tibial tendinitis, left leg (ICD-10 - M76.822) Plan Of Treatment No Information Insurance Providers Payer Name Payer Address Payer Phone Subscriber Number Group Number Insured Name Patient Relationship to Insured Coverage Start Date Coverage End Date [facility] CLAIM[facility] [address] [place] [address] [id number] Gareth Foster Spouse - patient is the spouse of the insured Medical (General) History Surgical History Surgery Date(Month/Year) Left knee scope x2 Hysterectomy 2009 Right oopherectomy 2017 left posterior ankle arthrot avery with synovectomy, gastronemius recessionand tendolysis of Achilles tendon Dr Padilla 03/24/24
--- OUTSIDE RECORDS SUMMARY | 2025-03-23 07:38 | XMS_ITS | Clinical Summary ---
Author Organization [facility] Address [address] [place] [address] Care Team Providers Care Car Distributor Name Role Phone Unallocated, Noms Provider Primary Care Provi malathi Allergies Active AllergyReactionsCriticalityNoted DateCommentsClarithromycinRashLow 04/30/2023 Medications MedicationSigDispense QuantityRefillsLast FilledStart DateEnd DateStatus Rimegepant Sulfate (Nurtec) 75 MG tablet dispersible Indications:Nonintractable headache, unspecified chronicity pattern, unspecified headache typeTake 1 tablet by mouth every other day 16 tablet 1105Active SUMAtriptan (Imitrex) 25 MG tablet Indications:Nonintractable headache, unspecified chronicity pattern, unspecified headache type,Migraine aura without headacheTAKE 1 TAB 1 TIME IF NEEDED FOR MIGRAINE, MAY REPEAT DOSE ONCE IN 2 HOURS IF NO RELIEF. MAX 2 PER 24 HOURS. 9 tablet 5Active Active Problems ProblemNoted DateDiagnosed DateMigraine aura without vdisrygy85/02/2024 Encounters DateTypeDepartmentCare ZxhfCpgsbrrihpk59/17/2025Refill [facility] [address] [place] [address] [place] [address] Dequan Gomez DO Nonintractable headache, unspecified chronicity pattern, unspecified headache type; Migraine aura without headachefrom Last 3 Months Family History Medical HistoryRelationNameCommentsCOPDFatherCancerFatherDiabetesFatherHeart diseaseFatherHeart diseaseMaternal GrandfatherRelationNameStatusCommentsFather AliveMaternal GrandfatherDeceasedMotherAliveSonAlive3 Social History Tobacco UseTypesPacks/DayYears UsedDateSmoking Tobacco: NeverSmokeless Tobacco: Never Tobacco Cessation:Counseling Given: No Alcohol UseStandard Drinks/WeekCommentsNot Currently0 (1 standard drink = 0.6 oz pure alcohol)Caffeine intake: coffee, energy drink 1-2 cups per dayAUDIT-CAnswer Date RecordedQ1: How often do you have a drink containing alcohol?2-4 times a month05/02/2023verage Number of DrinksNot on file05/02/2023Frequency of Binge DrinkingNot on file05/02/2023CommentsNoSex and Gender InformationValue Date RecordedSex Assigned at BirthNot on fileLegal ZtfYnrgxh50/15/2023 6:52 PM EDTGender IdentityNot on fileSexual OrientationNot on file Last Filed Vital Signs Vital SignReadingTime TakenCommentsBlood Vozvtutn336/7205/10/2024 9:05 AM EST Elgem865908/25/2023 3:00 PM ASUZmcffpxfzqq77.1 ??C (97 ??F)08/25/2023 3:00 PM EDT Respiratory Bxyg323508/25/2023 3:00 PM EDTOxygen Vqrdogqreg98%08/25/2023 3:00 PM EDTInhaled Oxygen Concentration--Evnbui88.1 kg (170 lb)05/10/2024 9:05 AM EST Wwcbge581.7 cm (5' 8 )12/16/2023 8:03 AM EDTBody Mass Index25.8507 8:03 AM EDT Plan of Treatment DateTypeDepartmentCare Team (Latest Contact Info)Galivlqpzhg79/23/2025 9:00 AM ESTOffice Visit [facility] [address] [place] [address] Alma Jim PA [address] [facility] [address] [place], [place] [address] Health MaintenanceDue DateLast VvzcVfzajxvnUslbzeady32/20/202412/20/2023, 05/13/2023Influenza Vaccine (#1)510/08/2023, 03/09/2020, 03/10/2018 Cervical Cancer ScreeningDiscontinuedPap RouiyQbbodpzuomdd85/17/2024HPV/Cotest Discontinued Procedures Procedure NamePriorityDate/TimeAssociated DiagnosisCommentsPAP SMEARRoutine 05/10/2024 12:00 AM ESTMM TOMOSYNTHESIS SCREENING BI05/13/2023 11:27 AM EST from Last 3 Months or Most Recently Relevant to Health Maintenance Results * Pap Smear (05/10/2024 12:00 AM EST)Specimen (Source)Anatomical Location / LateralityCollection Method / VolumeCollection TimeReceived TimeSwabCervical swab / Unknown Narrative Authorizing ProviderResult TypeResult StatusFazio Nurse Noms Bcp ObLAB CYTOLOGY ORDERABLESFinal ResultPerforming OrganizationAddressCity/State/ZIP CodePhone Number EXTERNAL LAB * MM TOMOSYNTHESIS SCREENING BI (05/13/2023 11:27 AM EST)Anatomical Region LateralityModalityOtherSpecimen (Source)Anatomical Location / Laterality Collection Method / VolumeCollection TimeReceived Time05/13/2023 11:27 AM EST Narrative 05/13/2023 11:28 AM EST [facility] ?[address] ? [place] [address] ? Mammography Report ? Signed ? Patient: LETY,LEXUS D ?MR#: [id number] ?? : 1980 ?Acct:[id number] ?? Age/Sex: 43 / F ?ADM Date: /20/ ?? Loc: MAMMO ? Attending Dr: Alma Jim ? Ordering Physician: Alma Jim ?Results: ? Date of Service: 12/20/23 ?Follow Up: ? Procedure(s): MM tomosynthesis screening BI ?? Accession Number(s): [id number] ? cc: Alma Jim; Physician,Non-Staff M.D. ? Patient Name: ? LEXUS FOSTER ? MR#: [id number] ? : 1980 ? Exam Date: 05/13/2023 [...] Cancers ? None ? LOCATION: ? [facility] ? BREAST COMPOSITION: ? Scattered areas fibroglandular [...] ?05/13/23 1128 ? DD/ ? TD/TT: ? Wet Pour Supervisor: Procedure Note Radiology, Radiologist, MD - 05/13/2023 [place] [address] Mammography Report Signed Patient: LEXUS FOSTER DMR#: [id number] : 1980Acct:[id number] Age/Sex: 43 / FADM Date: 05/13/23 Loc: MAMMO Attending Dr: Alma Jim Ordering Physician: Alma JimResults: Date of Service: 05/13/23Follow Up: Procedure(s): MM tomosynthesis screening BI Accession Number(s): [id number] cc: Alma Jim; Physician,Non-Staff MCleopatra Patient Name: LEXUS FOSTER MR#: [id number] : 1980 Exam Date: 05/13/2023 Ordering Doctor: ARIEL JMI . RADIOLOGY REPORT PROCEDURE: MM TOMOSYNTHESIS SCREENING BI COMPARISON: MG MAMM SCREEN 3D [place] CAD, 11/16/2020. INDICATIONS: screening Calculator Name NCI Breast Cancer Risk Assessment Tool 5 Year Breast Cancer Risk Not Reported. Lifetime Breast Cancer Risk Not Reported. Personal Breast Cancer No Personal Ovarian Cancer No Treatments None Family Cancers None LOCATION: [facility] BREAST COMPOSITION: Scattered areas fibroglandular density. FINDINGS: [...] M.D. Signed By:05/13/23 1128 DD/ 1127 TD/TT: Wet Pour Supervisor: Authorizing ProviderResult TypeResult StatusAlma Jim PACLINISYNC IMAGINGFinal Result from Last 3 Months or Most Recently Relevant to Health Maintenance Insurance * Guarantor: Lexus Foster DAccount TypeRelation to PatientDate of PhoneBilling AddressPersonal/OzehdnMzsq1980 [address] [address] Care Teams Team MemberRelationshipSpecialtyStart DateEnd Date Unallocated, Noms MD Deedee [address] [place] [address] PCP - GeneralFamily Medicine11/15/24
--- OUTSIDE RECORDS SUMMARY | 2025-03-23 07:38 | XMS_ITS | Encounter Summary ---
Author Organization [facility] Address [address] [place] [address] Care Team Providers Care Engine House Helper Name Role Phone Unallocated, Noms Provider Primary Care Provi malathi Encounter Details DateTypeDepartmentCare Team (Latest Contact Info)Ojkqtmcafwj82/20/2023linisync Result Encounter [facility] External Department Unsolicited Alma Jim PA [address] [facility] [facility] [address] [place], [place] [address] Social History Tobacco UseTypesPacks/DayYears UsedDateSmoking Tobacco: NeverAlcohol UseStandard Drinks/WeekCommentsYes0 (1 standard drink = 0.6 oz pure alcohol)Caffeine intake: coffee, energy drink 1-2 cups per dayAUDIT-CAnswerDate RecordedQ1: How often do you have a drink containing alcohol?2-4 times a month05/02/2023verage Number of DrinksNot on file05/02/2023Frequency of Binge DrinkingNot on file05/02/2023 CommentsNoSex and Gender InformationValueDate RecordedSex Assigned at BirthNot on fileLegal PqzVsegsc02/15/2023 6:52 PM EDTGender IdentityNot on file Sexual OrientationNot on filedocumented as of this encounter Plan of Treatment DateTypeDepartmentCare Team (Latest Contact Info)Xzacdvksoqf24/23/2025 9:00 AM ESTOffice Visit [facility] [address] [place] [address] Alma Jim PA [address] [place] [address] documented as of this encounter Procedures Procedure NamePriorityDate/TimeAssociated DiagnosisCommentsMM TOMOSYNTHESIS SCREENING BI05/13/2023 11:27 AM EST documented in this encounter Results * MM TOMOSYNTHESIS SCREENING BI (05/13/2023 11:27 AM EST)Anatomical Region LateralityModalityOtherSpecimen (Source)Anatomical Location / Laterality Collection Method / VolumeCollection TimeReceived Time05/13/2023 11:27 AM EST Narrative 05/13/2023 11:28 AM EST [facility] ?[address] ? [place] [address] ? Mammography Report ? Signed ? Patient: LEXUS FOSTER D ?MR#: [id number] ?? : 1980 ?Acct:[id number] ?? Age/Sex: 43 / F ?ADM Date: // ?? Loc: MAMMO ? Attending Dr: Alma Jim ? Ordering Physician: Alma Jim ?Results: ? Date of Service: 05/13/ ?Follow Up: ? Procedure(s): MM tomosynthesis screening BI ?? Accession Number(s): [id number] ? cc: Alma Jim; Physician,Non-Staff M.D. ? Patient Name: ? LEXUS DUKESHIRE ? MR#: [id number] ? : 1980 ? Exam Date: 05/13/2023 [...] Cancers ? None ? LOCATION: ? [facility] ? BREAST COMPOSITION: ? Scattered areas fibroglandular [...] ? Signed By: ?05/13/23 1128 ? DD/ 1127 ? TD/TT: ? Bridge Operator: Procedure Note Radiology, Radiologist, MD - 05/13/2023 [place] [address] Mammography Report Signed Patient: LEXUS FOSTER [facility]#: [id number] : 1980Acct:[id number] Age/Sex: 43 / FADM Date: 05/13/23 Loc: MAMMO Attending Dr: Alma Jim Ordering Physician: Alma Cotoults: Date of Service: 05/13/23Follow Up: Procedure(s): MM tomosynthesis screening BI Accession Number(s): [id number] cc: Alma Jim; Physician,Non-Staff MCleopatra Patient Name: LEXUS FOSTER MR#: [id number] : 1980 Exam Date: 05/13/2023 Ordering Doctor: ARIEL JIM . RADIOLOGY REPORT PROCEDURE: MM TOMOSYNTHESIS SCREENING BI COMPARISON: MG MAMM SCREEN 3D [place] CAD, 11/16/2020. INDICATIONS: screening Calculator Name NCI Breast Cancer Risk Assessment Tool 5 Year Breast Cancer Risk Not Reported. Lifetime Breast Cancer Risk Not Reported. Personal Breast Cancer No Personal Ovarian Cancer No Treatments None Family Cancers None LOCATION: [facility] BREAST COMPOSITION: Scattered areas fibroglandular density. FINDINGS: [...] M.D. Signed By:05/13/23 1128 DD/ 1127 TD/TT: Bridge Operator: Authorizing ProviderResult TypeResult StatusAlma Jim PACLINISYNC IMAGINGFinal Result documented in this encounter Visit Diagnoses Not on filedocumented in this encounter Care Teams Team MemberRelationshipSpecialtyStart DateEnd Date Unallocated, Noms Provider, [facility] [place] [address] PCP - GeneralFamily Medicine11/15/24documented as of this encounter
--- OUTSIDE RECORDS SUMMARY | 2025-03-23 07:39 | XMS_ITS | Encounter Summary ---
Author Organization [facility] Address [address] [place] [address] Care Team Providers Care Document Management Consultant Name Role Phone Unallocated, Noms Provider Primary Care Provi malathi Encounter Details DateTypeDepartmentCare Team (Latest Contact Info)Epqzbsegtiw29/25/2024Clinisync Result Encounter [facility] External Department Unsolicited Loren Cain PA [address] [place] [address] Social History Tobacco UseTypesPacks/DayYears UsedDateSmoking Tobacco: NeverSmokeless Tobacco: NeverAlcohol UseStandard Drinks/WeekCommentsNot Currently0 (1 standard drink = 0.6 oz pure alcohol)Caffeine intake: coffee, energy drink 1-2 cups per day AUDIT-CAnswerDate RecordedQ1: How often do you have a drink containing alcohol? 2-4 times a month3Average Number of DrinksNot on file05/02/2023 Frequency of Binge DrinkingNot on file3CommentsNoSex and Gender InformationValueDate RecordedSex Assigned at BirthNot on fileLegal SexFemale 08/06/2022 6:52 PM EDTGender IdentityNot on fileSexual OrientationNot on file documented as of this encounter Plan of Treatment DateTypeDepartmentCare Team (Latest Contact Info)Skozkntvsxz45/23/2025 9:00 AM ESTOffice Visit [facility] [address] [place] [address] Alma Grimm PA [address] [place] [address] [place] [address] documented as of this encounter Procedures Procedure NamePriorityDate/TimeAssociated DiagnosisCommentsXR ANKLE LT MIN 3V 12/17/2023 7:21 AM EDT documented in this encounter Results * XR ANKLE LT MIN 3V (12/17/2023 7:21 AM EDT)Anatomical RegionLateralityModality OtherSpecimen (Source)Anatomical Location / LateralityCollection Method / VolumeCollection TimeReceived Time12/17/2023 7:21 AM EDT Narrative 12/17/2023 7:23 AM EDT [facility] ?[address] ? [place] [address] ?XRay Report ? Signed ? Patient: LEXUS FOSTER ?MR#: [id number] ?? : 1980 ?Acct:[id number] ?? Age/Sex: 43 / F ?ADM Date: 12/16/23 ?? Loc: RAD ? Attending Dr: Loren Cain PA ? Ordering Physician: Loren Cain ?? Date of Service: 12/16/23 ?? Procedure(s): XR ankle LT min 3V ?? Accession Number(s): [id number] ? cc: Loren Cain; Physician,Non-Staff Xin ? [facility] ? [address] [place] [address] ? [place] [address] ? Patient Name: ?? LEXUS FOSTER ? MRN: [id number] ? date: 1980 ?Sex: F ?? Assigned Patient Location: RAD ?? Current Patient Location: ? Accession/Order Number: [id number] ?? Exam Date: 12/16/2023 ??09:35 ?Report Date: 12/17/2023 ??07:21 ? At the request of: ?? LOREN CAIN ? Procedure: ??XR ankle LT min 3V ? PROCEDURE: XR ankle LT min 3V ? COMPARISON: None. ? HISTORY: Acute Left Ankle Pain M25.572, Achilles Tendonitis Left ? FINDINGS: ?? BONES:No acute fracture or dislocation. Minimal plantar enthesopathic spurring ? of the calcaneus ?? SOFT TISSUES:Negative. No visible soft tissue swelling. ?? EFFUSION:None visible. ?? OTHER: Negative. ? XR/XR ankle LT min 3V ?? IMPRESSION: ? No acute abnormality ? Electronically authenticated by: SCOTTY ??ELLE ?? Date: 12/17/2023 ??07: ? Dictated By: ?Scotty Almeida M.D. ? Signed By: ?12/17/23722 ? DD/ 0721 ? TD/TT: ? Application Packager: Procedure Note Radiology, Radiologist, MD - 12/17/2023 [place] [address] XRay Report Signed Patient: LEXUS FOSTER DMR#: [id number] : 1980Acct:[id number] Age/Sex: 43 / FADM Date: 12/16/23 Loc: RAD Attending Dr: Loren GEORGE Ordering Physician: Loren Cain Date of Service: 12/16/23 Procedure(s): XR ankle LT min 3V Accession Number(s): [id number] cc: Loren Cain; Physician,Non-Staff M.DAbby The [place] [address] Patient Name: LEXUS FOSTER MRN: [id number] date: 1980 Sex: F Assigned Patient Location: [facility] Current Patient Location: Accession/Order Number: [id number] Exam Date: 12/16/2023 09:35 Report Date: 12/17/2023 07:21 At the request of: LOREN CAIN Procedure: XR ankle LT min 3V PROCEDURE: XR ankle LT min 3V COMPARISON: None. HISTORY: Acute Left Ankle Pain M25.572, Achilles Tendonitis Left FINDINGS: BONES:No acute fracture or dislocation. Minimal plantar enthesopathicspurring of the calcaneus SOFT TISSUES:Negative. No visible soft tissue swelling. EFFUSION:None visible. OTHER: Negative. XR/XR ankle LT min 3V IMPRESSION: No acute abnormality Electronically authenticated by: SCOTTY ALMEIDA Date: 12/17/2023 07:21 Dictated By: Scotty Almeida M.D. Signed By:12/17/23722 DD/ 0721 TD/TT: Application Packager: Authorizing ProviderResult TypeResult StatusMattnadine Cain PACLINISYNC IMAGING Final Result documented in this encounter Visit Diagnoses Not on filedocumented in this encounter Care Teams Team MemberRelationshipSpecialtyStart DateEnd Date Unallocated, Noms Provider, [address] [place] [address] PCP - GeneralFamily Medicine11/15/24documented as of this encounter
--- OUTSIDE RECORDS SUMMARY | 2025-03-23 07:39 | XMS_ITS | CCD ---
Author Organization [facility] Care Team Providers Care Sap Data Architect Name Role Phone Jose Petersen Unavailable Unavailable PEYTON MATHEW Unavailable Unavailable Jose Petersen Unavailable Unavailable PEYTON MATHEW Unavailable Unavailable GLENN, DR GUZMAN Primary Care Unavailable AMBER COMBS Consulting Unavailable AMBER COMBS Attending Unavailable AMBER COMBS Admitting Unavailable Peyton Mathew DO Primary Care Provider LINA DELGADO Attending Unavailable LOREN SINGH Attending Unavailable ALMA JIM Attending Unavailable Allergies Allergy ClassificationReported Allergen(s)Allergy TypeDate of OnsetReaction(s) Facility (1 source)ClarithromycinDrug AllergyThe [facility] Repository (4 sources)ClarithromycinAllergy to ixcupjujd32-87-1779RgohJFNO [employer] Work Phone: Medications Current Medications MedicationDrug Class(es)DatesSig (Normalized)Sig (Original)rimegepant 75 mg disintegrating oral tablet (4 sources)Start: 36-71-1449qior 1 tablet by mouth every other dayRimegepant Sulfate (Nurtec) 75 MG tablet dispersible Indications: Nonintractable headache, unspecified chronicity pattern, unspecified headache type Take 1 tablet by mouth every other day 16 tablet 11 09/10/2023 Active Problems Active Problems Problem ClassificationProblemDateDocumented DateEpisodic/ChronicHeadache; including migraine (4 sources)Migraine aura without headache ; Translations: [Migraine with aura, not intractable, without statusmigrainosus]Onset: 606502-37-9545Icntbpm Other screening for suspected conditions (not mental disorders or infectious disease) (2 sources)Patient encounter status; Translations: [Encounter for screening mammogram for malignant neoplasm of breast]39-49-4259PkuoijssBiupmsjybyvs (3 sources)CONTACT W/AND (SUSP) EXPOS COVID-19; Translations: [CONTACT W/AND (SUSP) EXPOS COVID-19]Onset: 01-23-2022 Past or Other Problems Problem ClassificationProblemDateDocumented DateEpisodic/ChronicUnclassified (1 source)CONTACT W/AND (SUSP) EXPOS COVID-19; Translations: [CONTACT W/AND (SUSP) EXPOS COVID-19]Onset: 01-22-2022 Results Test NameValueInterpretationReference RangeFacilityIGP,APTIMA HPV,AGE GDLNon 91-23-6364JUN GDLN ACOG TESTINGNote.NOMS HealthcareComment on above:TESTS RESULT FLAG UNITS REF RANGE LAB Clinician Provided Cytology Information Source.............Vagina No. of containers..01 ThinPrep Vial Age Algo ACOG Belle... 30-65 01 FLAG LEGEND: L-Low Normal,H-High Normal,LL-Alert Low,HH-Alert High <-Panic Low,>-Panic High,A-Abnormal,AA-Critical Abnormal Performed at: 01 =G [facility] [address] [place] [address] Julieth Almeida MD, HPV APTIMANegativeNegativeNOMS HealthcareComment on above:This nucleic acid amplification test detects fourteen high- risk HPV types (16,18,31,33,35,39,45,51,52,56,58,59,66,68) without differentiation. Performed at: =[address] [id number] Firmware Engineer: Julieth Almeida MD, Phone: [phone] Performed at: [address] [id number] Firmware Engineer: Juleith Almeida MD, Phone: [phone] IGP, APTIMA HPV, RFX 16/18,45Note.[facility] HospitalComment on above:TESTS RESULT FLAG UNITS REF RANGE LAB DIAGNOSIS: 02 NEGATIVE FOR INTRAEPITHELIAL LESION OR MALIGNANCY. Specimen adequacy: 02 Satisfactory for evaluation. Performed by: Garrett Mills, Shop Clerk . 02 Note: Note 02 The Pap smear is a screening test designed to aid in the detection of premalignant and malignant conditions of the uterine cervix. It is not a diagnostic procedure and should not be used as the sole means of detecting cervical cancer. Both false-positive and false-negative reports do occur. Test Methodology: Note 02 This liquid based ThinPrep(R) pap test was screened with the use of an image guided system. HPV Genotype Reflex Note 02 Criteria not met, HPV Genotype not performed. FLAG LEGEND: L-Low Normal,H-High Normal,LL-Alert Low,HH-Alert High <-Panic Low,>-Panic High,A-Abnormal,AA-Critical Abnormal Performed at: 02 WB [facility] [address] [place] [address] Julieth Almeida MD, SPATULA-ALONE Trinity HealthCovid-19 PCR (CVDTB)on 38-47-1226ZQLO-CoV-2 (COVID-19) RNA ERASMO+probe Ql (Unsp spec)Not detectedNormalNOT DETECTEDThe [facility] Comment on above:Result Comment: When diagnostic testing is negative, the [...] for this test is supported by the Fields of Health and Human Service's declaration that circumstances exist to justify the emergency use of in vitro diagnostics for the detection and/or diagnosis of the virus that causes COVID-19. This EUA will remain in effect for the duration of the COVID-19 declaration justifying emergency of IVDs, unless it is terminated or revoked by the FDA (after which the test may no longer be used).Performed By: #### CVDTBH #### [facility] [address] [place] [address] Dr. Renu Clark Vital Signs Date TimeVital SignValuePerforming QisguyofsWdfavedo12-60-6483 09:05-0500Body mass index (BMI) [Ratio]25.85 kg/m2Alma GEORGE Work Phone: Course HeroRipley County Memorial HospitalTlrxyvnmkv16-02-3113 09:05-0500Body qyndzh96.11 kgAlma GEORGE Work Phone: Course HeroRipley County Memorial HospitalHtcqeemgyt71-01-0263 09:05-0500Diastolic blood mm[Hg]Alma GEORGE Work Phone: noRipley County Memorial HospitalDojvhpbond72-45-9975 09:05-0500Systolic blood tahoqcxa513 mm[Hg]Alma GEORGE Work Phone: [facility] Encounters Encounter DateEncounter TypeCare ProviderFacilityStart: 05-10-2024 End: 48-30-1138Rdpthl flowsheetAlma GEORGE Work Phone: noms [facility] OBStart: 05-10-2024 End: 88-95-9562Cnncnq flowsheetAlma GEORGE Work Phone: noMS [facility] OBStart: 05-10-2024 End: 29-57-2104Nqgwrwrtb Result EncounterAlma GEORGE Work Phone: noms External Department UnsolicitedStart: 05-10-2024 End: 05-86-8887Ipjdiec encounter procedureAlma GEORGE Work Phone: noms HealthcareStart: 05-10-2024 End: 77-57-3657Xaxbcpdw preventive med est patient 40-64yrsAmy Alfa GEORGE Work Phone: noms [facility] OBComment on above:Well woman exam with routine gynecological exam; H/O: hysterectomy; Breast cancer screening by mammogramStart: 05-10-2024 End: 68-63-0738uresenzftkCUT RAMEYNot AvailableStart: 12-16-2023 End: 57-71-3111xuhtzgiicwLMDDXSH J MEYERNot AvailableStart: 08-25-2023 End: 79-71-2614fjkfmrwapqRIUQXIWOERI HALASYNot AvailableStart: 01-22-2022 End: 50-01-3905xrsafavihmFN DOCTOR MISCFacility:F8Znznj: 05-11-2017 End: 40-24-6506XgqxjnsexbNgmc KovesdiFacility:[facility] Procedures DateProcedureProcedure DetailPerforming ClinicianStart: 47-55-7815XJB,APTIMA HPV,AGE GDLNAlma GEORGE Work Phone: Start: 85-81-4233DabexubdodiSqr Ramey PA Work Phone: H/O: hysterectomyH/O: hysterectomyAlma GEORGE Work Phone: Plan of Treatment DateCare ActivityDetailAuthorStart: 05-16-2025 End: 45-72-0049Eoybjal encounter lcbxargtu44/23/2025 9:00 AM EST Office Visit [facility] [address] [place] [phone] Alma Jim PA [address] [place], [place] [id number] [facility] OBStart: 37-22-1987Uhsvxmkkn for malignant neoplasm of breastMammogramNOMO HealthcareStart: 05-10-2024 End: 81-03-7000HV Breast - bilateral ScreeningBilateral screening mammogram Imaging Routine Breast cancer screening by mammogram Expected: 05/10/2024 (Approximate), Expires: 07/11/2025[facility] Work Phone: comment on above:Expected: 05/10/2024 (Approximate), Expires: 07/11/2025Start: 05-10-2024 End: 21-27-5923Cueoiya encounter axwizgpci79/17/2024 9:00 AM EST Office Visit [facility] [address] [place] [phone] Alma Jim PA [address] [place], [place] [phone] ArrivedADVENTIST HEALTH TULARE OBComment on above:ArrivedStart: 01-24-2024 Influenza vaccinationInfluenza Vaccine (#1)[facility] HealthcareCBC W Auto Differential panel - BloodCBC auto differential Lab Routine Well woman exam with routine gynecological exam Ordered: 05/10/2024NOMO HealthcareComment on above: Ordered: 05/10/2024holesterol [Mass/volume] in Serum or PlasmaCholesterol, total Lab Routine Well woman exam with routine gynecological exam Ordered: 05/10/2024[facility] HealthcareComment on above:Ordered: 05/10/2024omprehensive metabolic 2000 panel - Serum or PlasmaComprehensive metabolic panel Lab Routine Well woman exam with routine gynecological exam Ordered: 05/10/2024[facility] HealthcareComment on above:Ordered: 05/10/2024Hemoglobin A1c/Hemoglobin.total in BloodHemoglobin A1c Lab Routine Well woman exam with routine gynecological exam Ordered: 05/10/2024[facility] HealthcareComment on above:Ordered: 05/10/2024THIN PREP TIS PAP AND HR HPV DNATHIN PREP TIS PAP AND HR HPV DNA Pathology and Cytology Routine Well woman exam with routine gynecological exam H/O: hysterectomy Ordered: 05/10/2024[facility] HealthcareComment on above:Ordered: 05/10/2024 Thyrotropin [Units/volume] in Serum or PlasmaTSH Lab Routine Well woman exam with routine gynecological exam Ordered: 05/10/2024[facility] HealthcareComment on above:Ordered: 05/10/2024 Immunizations Immunization DateImmunizationNotesCare GobwvfbiCfphiwet27-68-8680omcuemcud virus vaccine, unspecified formulationAlma GEORGE Work Phone: [facility] Payers DatePayer CategoryPayerPolicy [id number] (FRANCO) [id number] of Defense (NGUYEN and others)[id number] [id number] [id number] of Defense ( and others)[id number] Social History DateTypeDetailFacilityStart: 45-50-8176Azxviww smoking status NHISNever smoked tobaccoMOUNTAINSTAR HEALTHCARE Healthcare Work Phone: Start: 61-20-8151Hoccjnl use and exposureSmokeless tobacco non-userNOMO HealthcareStart: 75-03-0398Mjycivvih beverage intakeEx- drinker (finding)[facility] HealthcareStart: 05-02-2023 End: 19-34-5506Junthdx of Social functionNOMO HealthcareStart: 05-02-2023 End: 01-21-5315Pazyphr Use Disorder Identification Test - Consumption [AUDIT-C] [facility] HealthcareHow often to you have a drink containing alcohol?2-4 times a monthNOMO HealthcareAverage Number of DrinksNot on [facility] HealthcareStart: 27-99-6922Nnjppef CommentCaffeine intake: coffee, energy drink 1-2 cups per day [facility] HealthcareStart: 58-54-2798Vok assigned at birthNot on [facility] History of Present illness Narrative 05-10-2024 Note Date & XxraVpsjFtvsglbl21-41-0052 History of Present illness Narrative* ARIEL Ortega - 05/10/2024 9:00 AM EST Reason for Appointment: Patient ID: Karen Foster is a 44 y.o. female who presents for Gynecologic Exam Patient presents today for Annual Exam. MEDICATIONS Current Outpatient Medications Medication Instructions Rimegepant Sulfate (Nurtec) 75 MG tablet dispersible 1 tablet, Oral, Every other day ALLERGIES Allergies Allergen Reactions Biaxin [Clarithromycin] Rash PROBLEMS Active Ambulatory Problems Diagnosis Date Noted Migraine aura without headache (CMS/HCC) 08/25/2023 Resolved Ambulatory Problems Diagnosis Date Noted No Resolved Ambulatory Problems Past Medical History: Diagnosis Date Ankle fracture 2013 Left knee pain Multiparity 2009 Poor dentition Tonsillitis HISTORY PAST MEDICAL HISTORY SOCIAL HISTORY Past Medical History: Diagnosis Date Ankle fracture 2014 LEFT ANKLE Left knee pain Multiparity 2010 Poor dentition cavities x3 Tonsillitis Social History Tobacco Use Smoking status: Never Smokeless tobacco: Never Substance Use Topics Alcohol use: Not Currently Comment: Caffeine intake: coffee, energy drink 1-2 cups per day Drug use: Never FAMILY HISTORY Family History Problem Relation Name Age of Onset Diabetes Father Heart disease Father Cancer Father COPD Father Heart disease Maternal Grandfather SURGICAL HISTORY Past Surgical History: Procedure Laterality Date DENTAL SURGERY crowns on most teeth;Disease:poor dentition/cavities HYSTERECTOMY 2010 KNEE SURGERY arthroscopy- OOPHORECTOMY 2017 ovary removed due to torsion (Dr Gomez) OTHER SURGICAL HISTORY PPTL - Filshie clips;Disease:multiparity TONSILLECTOMY 1994 TUBAL LIGATION VAGINAL DELIVERY x3 REVIEW OF SYSTEMS Review of Systems: Review of Systems Constitutional: Negative. HENT: Negative. Eyes: Negative. Respiratory: Negative. Cardiovascular: Negative. Gastrointestinal: Negative. Genitourinary: Negative. Musculoskeletal: Negative. Skin: Negative. Neurological: Negative. All other systems reviewed and are negative. Hematological: Negative. Endocrine: Negative. Allergic/Immunologic: Negative. OBJECTIVE Objective: Physical Exam Constitutional: Appearance: Normal appearance. She is well-developed. Genitourinary: Vulva normal. Right Adnexa: not tender and no mass present. Left Adnexa: not tender and no mass present. No cervical discharge. Breasts: Breasts are soft. Right: Normal. Left: Normal. HENT: Head: Normocephalic. Nose: Nose normal. Mouth/Throat: Mouth: Mucous membranes are moist. Cardiovascular: Rate and Rhythm: Normal rate and regular rhythm. Pulmonary: Effort: Pulmonary effort is normal. Breath sounds: Normal breath sounds. Abdominal: General: Bowel sounds are normal. There is no distension. Palpations: Abdomen is soft. Tenderness: There is no abdominal tenderness. There is no guarding or rebound. Musculoskeletal: General: No swelling. Normal range of motion. Cervical back: Normal range of motion. Right lower leg: No edema. Left lower leg: No edema. Neurological: General: No focal deficit present. Mental Status: She is alert and oriented to person, place, and time. Skin: General: Skin is warm and dry. Psychiatric: Mood and Affect: Mood normal. Behavior: Behavior normal. Vitals and nursing note reviewed. Exam conducted with a staff veterinarian present. Vitals: Estimated body mass index is 25.85 kg/m as calculated from the following: Height as of 12/16/23: 5' 8 . Weight as of this encounter: 170 lb. BP: 110/72 No LMP recorded. Patient has had a hysterectomy. ASSESSMENT & PLAN ICD-10-CM 1. Well woman exam with routine gynecological exam Z01.419 THIN PREP TIS PAP AND HR HPV DNA 2. H/O: hysterectomy Z90.710 THIN PREP TIS PAP AND HR HPV DNA 3. Breast cancer screening by mammogram Z12.31 Bilateral screening mammogram Bilateral screening mammogram Annual: Patient presents today for an annual exam. Patient states she is doing well and has no complaints. Pap was obtained without difficulty and patient given mammogram order to have scheduled/obtained. Orders Placed This Encounter Procedures Bilateral screening mammogram Follow Up: Patient is to return in one year for annual unless needed otherwise. Documented by Lili Sotomayor MA on behalf of: ARIEL Ortega documented in this encounterNOMO Healthcare Evaluation note Note Date & TypeNoteFacilityEvaluation note* Diagnosis Well woman exam with routine gynecological exam Routine gynecological examination H/O: hysterectomy Acquired absence of both cervix and uterus Breast cancer screening by mammogram documented in this encounter [facility] Healthcare Summary Purpose Family History No Family History Records FoundNo Family History Records FoundNo Family History Records Found Advance Directives No Advanced Directives Records FoundNo Advanced Directives Records FoundNo Advanced Directives Records Found Additional Source Comments INFORMATION SOURCE (unrecogn ized section and content) DATE CREATED AUTHOR 11/17/2017 [facility] DATE CREATED AUTHOR AUTHOR'S ORGANIZ ATION 05/17/2022 [facility] DATE CREATED AUTHOR AUTHOR'S ORGANIZ ATION 05/12/2024 [facility] EPIC Care Teams (unrecognized sec tion and content) Team MemberRelationshipSpecialtyStart DateEnd Date Tomasz-Peyton Hoffman DO [address] [place] [address] PCP - GeneralInternal Medicine09/30/22Team MemberRelationshipSpecialtyStart Date End Date Tolbert-Leona Hoffmanra Kamala DO [address] [place] [address] PCP - GeneralInternal Medicine09/30/22 Reason for Visit (unrecogniz ed section and content) ReasonCommentsGynecologic Exam FOR RECORDS PERTAINING TO PATIENTS WHO ARE [...] BE BASED ON THE PRIMARY CLINICAL RECORDS. [facility] The [employer] K[employer] [facility]. provides no warranty or guarantee of the accuracy or completeness of information in this document.
--- OUTSIDE RECORDS SUMMARY | 2025-03-23 07:39 | XMS_ITS | Encounter Summary ---
Author Organization [facility] Address [address] [place] [address] Care Team Providers Care Director E Learning Name Role Phone Unallocated, Noms Provider Primary Care Provi malathi Encounter Details DateTypeDepartmentCare Team (Latest Contact Info)Xqaeyikqxyi61/25/2024Clinisync Result Encounter [facility] Unsolicited Loren Cain PA [address] [place] [address] Social History Tobacco UseTypesPacks/DayYears UsedDateSmoking [...] Plan of Treatment DateTypeDepartmentCare Team (Latest Contact Info)Kykpvzunkjh58/23/2025 9:00 AM ESTOffice Visit NOM[facility]ie GOODWIN [address] [place] [address] Alma Grimm PA [address] [place] [address] [place] [address] documented as of this encounter Procedures Procedure NamePriorityDate/TimeAssociated DiagnosisCommentsMR ANKLE LT WO CON 12/17/2023 4:24 PM EDT documented in this encounter Results * MR ANKLE LT WO CON (12/17/2023 4:24 PM EDT)Anatomical RegionLateralityModality OtherSpecimen (Source)Anatomical Location / LateralityCollection Method / VolumeCollection TimeReceived Time12/17/2023 4:24 PM EDT Narrative 12/17/2023 4:27 PM EDT [facility] ?[address] ? [place] [address] ? Magnetic Resonance Report ? Signed ? Patient: LEXUS FOSTER ?MR#: [id number] ?? : 1980 ?Acct:[id number] ?? Age/Sex: 43 / F ?ADM Date: 12/17/23 ?? Loc: MRI ? Attending Dr: Loren Cain PA ? Ordering Physician: Loren Cain ?? Date of Service: 12/17/23 ?? Procedure(s): MR ankle LT wo con ?? Accession Number(s): [id number] ? cc: Loren Cain; Physician,Non-Staff Xin ? [facility] ? [address] [place] [address] ? [place] [address] ? Patient Name: ?? LEXUS FOSTER ? MRN: [facility]:[id number] ? date: 1980 ?Sex: F ?? Assigned Patient Location: MRI ?? Current Patient Location: MRI ?? Accession/Order Number: [id number] ?? Exam Date: 12/17/2023 ??14:45 ?Report Date: 12/17/2023 ??16:24 ? At the request of: ?? LOREN CAIN ? Procedure: ??MR ankle LT wo con ? EXAM: MR ankle LT wo con ? HISTORY: Acute Left Ankle Pain M28.572. Pain in the region of the Achilles ?? tendon. The patient ran 4 days ago and had a twisting injury to the left ankle ? the following day feeling a pop and pain along the posterior aspect of ankle. ?? History of prior partial Achilles injury. ? COMPARISON: Ankle x-rays from 12/16/2023. ? TECHNIQUE: Multiplanar and multisequence imaging of the left ankle was ?? performed without contrast. ? FINDINGS: No acute fracture is identified in the ankle or visualized foot. The ? distal tibia and fibula are intact. There is no OCD lesion involving the talar ? dome. No calcaneal stress fracture is identified. There is relative ?? preservation of the joint spaces in the ankle and foot. The tarsometatarsal ?? alignment appears anatomic although not included on the axial images. ? There is mild thickening and heterogeneous intermediate signal of the mid ?? fibers of the Achilles tendon consistent with moderate tendinopathy. No focal ?? Achilles tendon tear is identified. There is a small amount of fluid in the ?? retrocalcaneal bursa. There is also mild edema in Kager's fat. ? No focal peroneal tendon tear is identified. The flexor and extensor tendons ?? appear intact including the posterior tibialis tendon. A small amount of fluid ? tracks along the posterior tibialis tendon. ? There is subtle intermediate signal and irregularity of the anterior ?? talofibular ligament consistent with a prior low-grade sprain. The ?? calcaneofibular ligament, posterior talofibular ligament and superficial and ?? deep components of the deltoid ligament appear intact. ? There is no cystic or solid mass in the region of the tarsal tunnel. There is ?? no acute abnormality involving the plantar fascia. There is a small to ?? moderate ?? plantar calcaneal spur. ? MR/MR ankle LT wo con ?? IMPRESSION: ? 1. There is moderate tendinopathy of the mid fibers of the Achilles tendon ?? with ?? no focal Achilles tendon tear. There is edema in the adjacent Kager's fat and ?? a ?? small amount of fluid in the retrocalcaneal bursa. ? 2. No acute bony abnormality involving the ankle or foot. There is no OCD ?? lesion involving the talar dome. ? 3. Prior low-grade sprain of the anterior talofibular ligament. ? 4. A small amount of fluid tracks along the posterior tibialis tendon and ?? correlation for clinical findings of mild tenosynovitis would be helpful. ? Electronically authenticated by: JEANNETTE ??CECY ?? Date: 12/17/2023 ??16:24 ? Dictated By: ?Jeannette Sotomayor M.D. ? Signed By: ?12/17/231626 ? DD/ 23 ? TD/TT: ? Home Care Music Therapist: Procedure Note Radiology, Radiologist, MD - 12/17/2023 [place] [address] Magnetic Resonance Report Signed Patient: LEXUS FOSTER DMR#: [id number] : 1980Acct:[id number] Age/Sex: 43 / FADM Date: 12/17/23 Loc: MRI Attending Dr: Loren GEORGE Ordering Physician: Loren Cain Date of Service: 12/17/23 Procedure(s): ankle LT wo con Accession Number(s): [id number] cc: Loren Cain; Physician,Non-Staff Xin The [place] [id number] Patient Name: LEXSU FOSTER MRN: [id number] date: 1980 Sex: F Assigned Patient Location: MRI Current Patient Location: MRI Accession/Order Number: [id number] Exam Date: 12/17/2023 14:45 Report Date: 12/17/2023 16:24 At the request of: LOREN CAIN Procedure: MR ankle LT wo con EXAM: MR ankle LT wo con HISTORY: Acute Left Ankle Pain M28.572. Pain in the region of the Achilles tendon. The patient ran 4 days ago and had a twisting injury to the leftankle the following day feeling a pop and pain along the posterior aspect ofankle. History of prior partial Achilles injury. COMPARISON: Ankle x-rays from 12/16/2023. TECHNIQUE: Multiplanar and multisequence imaging of the left ankle was performed without contrast. FINDINGS: No acute fracture is identified in the ankle or visualized foot.The distal tibia and fibula are intact. There is no OCD lesion involving thetalar dome. No calcaneal stress fracture is identified. There is relative preservation of the joint spaces in the ankle and foot. Thetarsometatarsal alignment appears anatomic although not included on the axial images. There is mild thickening and heterogeneous intermediate signal of the mid fibers of the Achilles tendon consistent with moderate tendinopathy. Nofocal Achilles tendon tear is identified. There is a small amount of fluid inthe retrocalcaneal bursa. There is also mild edema in Kager's fat. No focal peroneal tendon tear is identified. The flexor and extensortendons appear intact including the posterior tibialis tendon. A small amount offluid tracks along the posterior tibialis tendon. There is subtle intermediate signal and irregularity of the anterior talofibular ligament consistent with a prior low-grade sprain. The calcaneofibular ligament, posterior talofibular ligament and superficialand deep components of the deltoid ligament appear intact. There is no cystic or solid mass in the region of the tarsal tunnel. Thereis no acute abnormality involving the plantar fascia. There is a small to moderate plantar calcaneal spur. MR/MR ankle LT wo con IMPRESSION: 1. There is moderate tendinopathy of the mid fibers of the Achilles tendon with no focal Achilles tendon tear. There is edema in the adjacent Kager's fatand a small amount of fluid in the retrocalcaneal bursa. 2. No acute bony abnormality involving the ankle or foot. There is no OCD lesion involving the talar dome. 3. Prior low-grade sprain of the anterior talofibular ligament. 4. A small amount of fluid tracks along the posterior tibialis tendon and correlation for clinical findings of mild tenosynovitis would be helpful. Electronically authenticated by: JEANNETTE SOTOMAYOR Date: 12/17/2023 16:24 Dictated By: Jeannette Sotomayor M.D. Signed By:12/17/23 1627 DD/ 1624 TD/TT: Home Care Music Therapist: Authorizing ProviderResult TypeResult StatusMatthew J [facility] IMAGING Final Result documented in this encounter Visit Diagnoses Not on filedocumented in this encounter Care Teams Team MemberRelationshipSpecialtyStart DateEnd Date Unallocated, Noms Deedee, [address] [place] [address] PCP - GeneralFamily Medicine11/15/24documented as of this encounter
--- NOTE | 2025-03-23 09:22 | XR_ITS ---
The [place] [id number] Patient Name: LEXSU DAVIDSON MRN: [id number] date: 1980 Sex: F Assigned Patient Location: [facility] Current Patient Location: [facility] Accession/Order Number: [id number] Exam Date: 03/23/2025 09:15 Report Date: 03/23/2025 09:42 At the request of: ILENE LARSEN DO Procedure: XR hip LT 1V w/ pelvis Left hip 2 views and one view pelvis. Reason for exam: Left hip pain. COMPARISON: None. FINDINGS: No acute bony process is seen. Minimal degenerative changes of the hips. Calcification is seen involving the region of the left hip labrum suggestive of prior injury. Additional mild degenerative changes seen involving the SI joints and pubic symphysis XR/XR hip LT 1V w/ pelvis IMPRESSION: Minimal degenerative changes of the hips without acute bony process. Impression dictated by: Naveen Salcedo Jr. DAbbyOAbby 03/23/2025 9:42 AM Dictation Location: [place] [address] Electronically authenticated by: [id number] Y Date: 03/23/2025 09:42
== END 2025-03-23 07:36 | disposition home or self-care (01) ==
PROVIDERS: Visit Provider Physician Assistant
DX: M25.552 Pain in left hip (principal)
CPT/HCPCS: 73501

== ENCOUNTER 2025-03-29 12:53 | Outpatient (RCR) | payer OTHER, SELFPAY | END 2025-03-30 13:22 | disposition home or self-care (01) | LOC: PT 12:53 | PROVIDERS: Visit Provider Physician Assistant | DX: M25.552 Pain in left hip (principal) | CPT/HCPCS: 97162 ==

== ENCOUNTER 2025-05-16 20:36 | Outpatient (REF) | payer OTHER, SELFPAY ==
--- OUTSIDE RECORDS SUMMARY | 2024-03-24 03:30 | XMS_ITS ---
Author Organization [facility] [place] Address [address] [place] [address] Care Team Providers Care Shovel Log Loader Operator Name Role Phone None, Unknown or Primary Care Provider Unavailab Keenan Nicole Unavailable [phone] REASON FOR VISIT LT gastroc, exostectomy talus Encounters Encounter Location Date Provider Diagnosis [facility] OUTPATIENT [facility] [address] 03/24/2024 Keenan Padilla Plan Of Treatment No Information Progress Notes * Karen FOSTERDOB:[birth year] (45 yo F)Acc No.[id number]:03/24/2024 UNLOCKED PROGRESS NOTE Patient:?Karen FOSTER :?Keenan Padilla DPM, MSDOB:1980???Age: 43 Y???Sex:FemaleDate:4Phone:[phone]:[address], [place], [id number]:Unknown or NoneCheck Out:09:04 AM EST * * Electronic signature of Keenan Padilla DPM on 05/16/2025 at 08:47 AM ESTSign off status: PendingVisit Status:?CHK (Check Out) * Provider: Sherrell Padilla DPM, MS Date: Generated for Printing/Faxing/eTransmitting on:?05/16/2025 08:47 AM EST
--- OUTSIDE RECORDS SUMMARY | 2025-05-09 | XMS_ITS | Encounter Summary ---
Author Organization [facility] Address [address] [place] [address] Care Team Providers Care Maintenance Helper Utility Engineer Name Role Phone Unavailable Primary Care Provider Unavailabl e Encounter Details DateTypeDepartmentCare Team (Latest Contact Info)Lvfbkwmixnb86/16/2025 - 05/09/2025 11:59 PM ESTHospital Encounter [facility] Radiology External Films [address] [place] [address] Discharge Disposition: Home or Self Care () Social History Tobacco UseTypesPacks/DayYears UsedDateSmoking Tobacco: Never Assessed CommentsUnknownSex and Gender InformationValueDate RecordedSex Assigned at Uhjogp0504/27/2025 1:15 PM ESTLegal EttXvvikq97/04/2025 1:13 PM ESTGender Identity Uohlbq2504/27/2025 1:15 PM ESTSexual OrientationChoose not to /04/2025 1:15 PM ESTdocumented as of this encounter Plan of Treatment DateTypeDepartmentCare Team (Latest Contact Info)Nkxsttkyffg83/29/2026 7:30 AM ESTHospital Encounter [facility] Invasive Surgery [address] [place] [address] Neil Abernathy MD [address] [place] [address] 06/22/2025 7:30 AM EST - 06/22/2025 9:00 AM ESTSurgery [facility] [address] [place] [address] Neil Abernathy MD [address] [place] [address] HIP ARTHROSCOPY WITH LABRUM REPAIR [[id number] (CPT??)]06/26/2025 10:10 AM ESTOffice Visit [facility] Orth[facility] [address] [place] [address] [place] [address] Neil Abernathy MD [address] [place] [address] NamePriorityAssociated DiagnosesDate/TimeARTHROSCOPY,HIP WITH LABRUM REPAIR Acetabular labrum tear, left, initial encounter 06/22/2025 7:30 AM ESTdocumented as of this encounter Procedures Procedure NamePriorityDate/TimeAssociated DiagnosisCommentsMR TRANSFER OF OUTSIDE GGUZETskhtkp77/16/2025 12:00 AM EST documented in this encounter Results * MR transfer of outside films (05/09/2025 12:00 AM EST)Specimen (Source) Anatomical Location / LateralityCollection Method / VolumeCollection Time Received Time Narrative IMAGING - 05/09/2025 4:23 PM EST This order has been auto-finalized and does not contain a result. Authorizing ProviderResult TypeResult StatusDavid Josemanuel FLORESIMAngel MRI PROCEDURESFinal ResultPerforming OrganizationAddressCity/State/ZIP CodePhone Number IMAGING documented in this encounter Visit Diagnoses Not on filedocumented in this encounter
--- OUTSIDE RECORDS SUMMARY | 2025-05-09 09:40 | XMS_ITS | Encounter Summary ---
Author Organization [facility] Address [address] [place] [address] Care Team Providers Care Cable Tender Name Role Phone Unavailable Primary Care Provider Unavailabl e Reason for Visit * ReasonCommentsPain Encounter Details DateTypeDepartmentCare Team (Latest Contact Info)Srrlthjbist64/16/2025 9:40 AM ESTOffice Visit [facility] [address] [place] [address] [place] [address] Neil Abernathy MD [address] [place] [address] Pre-op testing (Primary Dx); Acetabular labrum tear, left, initial encounter Social History Tobacco UseTypesPacks/DayYears UsedDateSmoking Tobacco: Never Assessed CommentsUnknownSex and Gender InformationValueDate RecordedSex Assigned at Ckupxw1904/27/2025 1:15 PM ESTLegal YtiVaghfo50/04/2025 1:13 PM ESTGender Identity Xtdjqo4504/27/2025 1:15 PM ESTSexual OrientationChoose not to loazzkzj82/04/2025 1:15 PM ESTdocumented as of this encounter Last Filed Vital Signs Vital SignReadingTime TakenCommentsBlood Pressure--Pulse--Temperature-- Respiratory Rate--Oxygen Saturation--Inhaled Oxygen Concentration--Pbtwxt74.8 kg (165 lb)05/09/2025 9:50 AM FXNIpltai212.7 cm (5' 8 )05/09/2025 9:50 AM ESTBody Mass Index25.0905/09/2025 9:50 AM ESTdocumented in this encounter Progress Notes * Neil Abernathy MD - 05/09/2025 9:40 AM EST Images from the original note were not included. Orthopedic Surgery Subjective Pain of the Left Hip 05/09/25 Karen Foster is a 45 y.o. female presenting for evaluation of left hip pain for over a year. It is worsening over the past year. She has tried over 6 weeks of physical therapy and this has not helped. She has pain deep into the groin. She had an MRI of the left hip that, even without contrast, demonstrated an acetabular labral tear. I suspect that if contrast with added, the labral tear would be even bigger. She also has trochanteric bursitis on her MRI. Physical exam is consistent with positive labral signs positive FADIR test. My recommendation would be for left hip arthroscopic labral repair. Risks and benefits discussed. She would like to proceed. Informed consent today was obtained. Will schedule her at her convenience. In the meantime I have shown her a home exercise program aimed at core strengthening and IT band stretching for her trochanteric bursitis. History Surgical History[1] Medical History[2] Objective General: Body mass index is 25.09 kg/m??. No acute distress, comfortable Respiratory: Unlabored breathing with normal rate, no cough Cardiovascular: Warm well perfused extremities Psych: Appropriate mood behavior Left hip demonstrates negative logroll negative tenderness palpation of the psoas tendon. Good stability and motion. Good strength. She does however have tenderness palpation of the greater trochanter as well as positive labral and FADIR signs Imaging personally reviewed: Nonarthrogram MRI of the left hip demonstrates acetabular labral tear with no arthritis Assessment/Plan Karen Foster is a 45 y.o. year old female with Pre-op testing [1] No past surgical history on file. [2] No past medical history on file. documented in this encounter Plan of Treatment DateTypeDepartmentCare Team (Latest Contact Info)Qwphchdheoz28/29/2026 7:30 AM ESTHospital Encounter [facility] Surgery [address] [place] [address] Neil Abernathy MD [address] [place] [address] [place] [address] 06/22/2025 7:30 AM EST - 06/22/2025 9:00 AM ESTSurgery [facility] [address] [place] [address] [place] [phone] Neil Abernathy MD [address] [place] [address] HIP ARTHROSCOPY WITH LABRUM REPAIR [[id number] (CPT??)]06/26/2025 10:10 AM ESTOffice Visit [facility] Orthopaedics [address] [place] [address] [place] [address] Neil Abernathy MD [address] [facility] [address] NamePriorityAssociated DiagnosesDate/TimeARTHROSCOPY,HIP WITH LABRUM REPAIR Acetabular labrum tear, left, initial encounter 06/22/2025 7:30 AM ESTdocumented as of this encounter Results * MRSA/MSSA DNA Nasal (05/09/2025 10:21 AM EST)ComponentValueRef RangeTest MethodAnalysis TimePerformed AtPathologist SignatureMSSA DNANegativeNegative 05/09/2025 3:28 PM [facility] ([facility])MRSA DNANegativeNegative 05/09/2025 3:28 PM [facility] ([facility])Specimen (Source)Anatomical Location / LateralityCollection Method / VolumeCollection TimeReceived Time SwabNasal structure / UnknownNon-blood Collection / Zxltgdn9305/09/2025 10:21 AM EST05/09/2025 10:24 AM EST Narrative [facility]) - 05/09/2025 3:28 PM EST Testing methodology is an automated qualitative in vitro diagnostic test for the direct detection and differentiation of Staphylococcus aureus (SA) DNA and methicillin- resistant Staphylococcus aureus (MRSA) DNA from nasal swabs in patients at risk for nasal colonization. The test utilizes real-time polymerase chain reaction (PCR) for the amplification of MRSA/SA DNA and fluorogenic target-specific hybridization probes for the detection of the amplified DNA. A negative result does not preclude nasal colonization. Authorizing ProviderResult TypeResult StatusDavid Josemanuel [facility] - GENERAL ORDERABLESFinal ResultPerforming OrganizationAddressCity/State/ZIP Code Phone Number [facility]) [address] [place] [address] documented in this encounter Visit Diagnoses Diagnosis Pre-op testing- Primary Unspecified pre-operative examination Acetabular labrum tear, left, initial encounter Acetabular labrum tear, left, initial encounter documented in this encounter
--- OUTSIDE RECORDS SUMMARY | 2025-05-09 10:25 | XMS_ITS | Encounter Summary ---
Author Organization [facility] Address [address] [place] [address] Care Team Providers Care Assembly Member Name Role Phone Unavailable Primary Care Provider Unavailabl e Encounter Details DateTypeDepartmentCare Team (Latest Contact Info)Lkhghgpsrgg75/16/2025 10:25 AM ESTLab [facility] Station [address] [place] [address] [place] [address] Pre-op testing Social History Tobacco UseTypesPacks/DayYears UsedDateSmoking Tobacco: Never Assessed CommentsUnknownSex and Gender InformationValueDate RecordedSex Assigned at Xouuzi9004/27/2025 1:15 PM ESTLegal MbzLxtfvu68/04/2025 1:13 PM ESTGender Identity Wotuzv5704/27/2025 1:15 PM ESTSexual OrientationChoose not to zciibvpr15/04/2025 1:15 PM ESTdocumented as of this encounter Plan of Treatment DateTypeDepartmentCare Team (Latest Contact Info)Sqspwkvkxhy62/29/2026 7:30 AM ESTHospital Encounter [facility] Invasive Surgery [address] [place] [address] Neil Abernathy MD [address] [place] [address] 06/22/2025 7:30 AM EST - 06/22/2025 9:00 AM ESTSurgery [facility] Invasive Surgery [address] [place] [address] Neil Abernathy MD [address] [place] [place] [address] HIP ARTHROSCOPY WITH LABRUM REPAIR [[id number] (CPT??)]06/26/2025 10:10 AM ESTOffice Visit [facility] Orth[facility] [address] [place] [address] Neil Abernathy MD [address] [place] [address] NamePriorityAssociated DiagnosesDate/TimeARTHROSCOPY,HIP WITH LABRUM REPAIR Acetabular labrum tear, left, initial encounter 06/22/2025 7:30 AM ESTdocumented as of this encounter Procedures Procedure NamePriorityDate/TimeAssociated DiagnosisCommentsMRSA/MSSA DNA NASAL Bpfksbw9705/09/2025 10:21 AM EST Pre-op testing documented in this encounter Results * MRSA/MSSA DNA Nasal (05/09/2025 10:21 AM EST)ComponentValueRef RangeTest MethodAnalysis TimePerformed AtPathologist SignatureMSSA DNANegativeNegative 05/09/2025 3:28 PM [facility] ([facility])MRSA DNANegativeNegative 05/09/2025 3:28 PM [facility] ([facility])Specimen (Source)Anatomical Location / LateralityCollection Method / VolumeCollection TimeReceived Time SwabNasal structure / UnknownNon-blood Collection / Hteoewm2905/09/2025 10:21 AM EST05/09/2025 10:24 AM EST Narrative [facility] ([facility]) - 05/09/2025 3:28 PM EST Testing methodology [...] GENERAL ORDERABLESFinal ResultPerforming OrganizationAddressCity/State/ZIP Code Phone Number [facility] [address] [place] [address] documented in this encounter Visit Diagnoses Diagnosis Pre-op testing Unspecified pre-operative examination Acetabular labrum tear, left, initial encounter- Primary Acetabular labrum tear, left, initial encounter documented in this encounter
--- OUTSIDE RECORDS SUMMARY | 2025-05-16 09:00 | XMS_ITS | Encounter Summary ---
Author Organization [facility] Address [address] [place] [place] [address] Care Team Providers Care Cs Associate Name Role Phone Unallocated, Noms Provider Primary Care Provi malathi Reason for Visit * ReasonCommentsGynecologic Exam Encounter Details DateTypeDepartmentCare Team (Latest Contact Info)Kxgtpmlattu46/23/2025 9:00 AM ESTOffice Visit MASOOD GOODWIN [address] [place] [address] Alma Grimm PA [address] [facility] [address] [facility] [address] [place], [facility]11 Well woman exam with routine gynecological exam; Encounter for screening mammogram for malignant neoplasm of breast Social History Tobacco UseTypesPacks/DayYears UsedDateSmoking Tobacco: NeverSmokeless [...] on file documented as of this encounter Last Filed Vital Signs Vital SignReadingTime TakenCommentsBlood Eoozmdaf432/7212 9:05 AM EST Pulse--Temperature--Respiratory Rate--Oxygen Saturation--Inhaled Oxygen Concentration--Nzdxra04.6 kg (171 lb)05/16/2025 9:05 AM ESTHeight--Body Mass Pfjtu5911/24/2024 8:03 AM EDTdocumented in this encounter Progress Notes * ARIEL Ortega - 05/16/2025 9:00 AM EST Reason for Appointment: Patient ID: Karen Foster is a 45 y.o. female who presents for Gynecologic Exam Patient presents today for Annual Exam. MEDICATIONS Current Outpatient Medications Medication Instructions Rimegepant Sulfate (Nurtec) 75 MG tablet dispersible 1 tablet, Oral, Every other day SUMAtriptan (Imitrex) 25 MG tablet TAKE 1 TAB 1 TIME IF NEEDED FOR MIGRAINE, MAY REPEAT DOSE ONCE IN 2 HOURS IF NO RELIEF. MAX 2 PER 24 HOURS. ALLERGIES Allergies Allergen Reactions Biaxin [Clarithromycin] Rash PROBLEMS Active Ambulatory Problems Diagnosis Date Noted Migraine aura without headache 08/25/2023 Resolved Ambulatory Problems Diagnosis Date Noted No Resolved Ambulatory Problems Past Medical History: Diagnosis Date Ankle fracture 2013 Left knee pain Multiparity 2010 Poor dentition ([facility]) Tonsillitis HISTORY PAST MEDICAL HISTORY SOCIAL HISTORY Past Medical History: Diagnosis Date Ankle fracture 2013 LEFT ANKLE Left knee pain Multiparity 2010 Poor dentition cavities ([facility]) x3 Tonsillitis Social History Tobacco Use Smoking [...] SURGICAL HISTORY PPTL - Filshie clips;Disease:multiparity TONSILLECTOMY 1993 TUBAL LIGATION VAGINAL DELIVERY x3 REVIEW OF SYSTEMS Review of Systems: Review of Systems Constitutional: Negative. HENT: Negative. Eyes: Negative. Respiratory: Negative. Cardiovascular: Negative. Gastrointestinal: Negative. Genitourinary: Negative. Musculoskeletal: Negative. Skin: Negative. Neurological: Negative. All other systems reviewed and are negative. Hematological: Negative. Endocrine: Negative. Allergic/Immunologic: Negative. OBJECTIVE Objective: Physical Exam Constitutional: Appearance: Normal appearance. She is normal weight. Genitourinary: Right Adnexa: not tender and no mass present. Left Adnexa: not tender and no mass present. Cervix is absent. No cervical discharge. Uterus is absent. Breasts: Breasts are soft. Right: Normal. Left: Normal. HENT: Head: Normocephalic. Nose: Nose normal. Mouth/Throat: Mouth: Mucous membranes are moist. Cardiovascular: Rate and Rhythm: Normal rate. Pulses: Normal pulses. Pulmonary: Effort: Pulmonary effort is normal. Breath sounds: Normal breath sounds. Abdominal: General: Bowel sounds are normal. Palpations: Abdomen is soft. Musculoskeletal: General: Normal range of motion. Cervical back: Normal range of motion. Neurological: General: No focal deficit present. Mental Status: She is alert and oriented to person, place, and time. Skin: General: Skin is warm and dry. Psychiatric: Mood and Affect: Mood normal. Behavior: Behavior normal. Thought Content: Thought content normal. Judgment: Judgment normal. Vitals and nursing note reviewed. Exam conducted with a hosiery repairer present. Vitals: Estimated body mass index is 25.85 kg/m?? as calculated from the following: Height as of 12/16/23: 5' 8 . Weight as of 05/10/24: 170 lb. BP: No LMP recorded. Patient has had a hysterectomy. ASSESSMENT & PLAN ICD-10-CM 1. Well woman exam with routine gynecological exam Z01.419 THIN PREP TIS PAP AND HR HPV DNA CANCELED: THIN PREP TIS PAP AND HR HPV DNA 2. Encounter for screening mammogram for malignant neoplasm of breast Z12.31 Bilateral screening mammogram Bilateral screening mammogram Assessment/Plan Annual Exam: Patient presents today for an annual exam. Patient states she is doing well and has no complaints. Pap was obtained without difficulty. Patient states having headaches occasionally. Samples of ubrevly given with script card. We discussed starting estradiol or other HRT for possible headache relief as well. Pt has h/o hyterectomy withooprhrectomy x 1 Orders Placed This Encounter Procedures Bilateral screening mammogram Follow Up: Patient is to return in one year for annual unless needed otherwise. Documented by Veronica Mccall CST on behalf of: ARIEL Ortega documented in this encounter Plan of Treatment DateTypeDepartmentCare Team (Latest Contact Info)Cdwrdqcztuc63/29/2026 9:00 AM ESTProcedure Visit NOMStephanie GOODWIN [address] [place] [address] Alma Grimm PA [address] [address] [place] [address] NameTypePriorityAssociated DiagnosesOrder ScheduleBilateral screening mammogram ImagingRoutine Encounter for screening mammogram for malignant neoplasm of breast Expected: 05/16/2025 (Approximate), Expires: 07/17/2026THIN PREP TIS PAP AND HR HPV DNAPathology and CytologyRoutine Well woman exam with routine gynecological exam Ordered: 05/16/2025Hemoglobin F6uIhsQxonopy Well woman exam with routine gynecological exam Ordered: 05/16/2025BC auto differentialLabRoutine Well woman exam with routine gynecological exam Ordered: 05/16/2025TSHLabRoutine Well woman exam with routine gynecological exam Ordered: 05/16/2025holesterol, totalLabRoutine Well woman exam with routine gynecological exam Ordered: 05/16/2025omprehensive metabolic panelLabRoutine Well woman exam with routine gynecological exam Ordered: 05/16/2025documented as of this encounter Visit Diagnoses Diagnosis Well woman exam with routine gynecological exam Routine gynecological examination Encounter for screening mammogram for malignant neoplasm of breast documented in this encounter Care Teams Team MemberRelationshipSpecialtyStart DateEnd Date Unallocated, Noms MD [address] [place] [address] PCP - GeneralFamily Medicine11/15/24documented as of this encounter
--- OUTSIDE RECORDS SUMMARY | 2025-05-16 20:41 | XMS_ITS | Clinical Summary ---
Author Organization [facility] Address [address] [place] [address] Care Team Providers Care Django Developer Name Role Phone Greyson Conley DO Unavailable Encounters DateTypeDepartmentCare DdhmHuyhnlqaiou83/02/2025Transcribe Orders Referring Physician [address] [place] [address] Greyson Conley DO Left hip pain (Primary Dx)from Last 3 Months Social History Tobacco UseTypesPacks/DayYears UsedDateSmoking Tobacco: Never Assessed CommentsUnknownSex and Gender InformationValueDate RecordedSex Assigned at Not on fileLegal JryFdrusm35/02/2025 4:10 PM ESTGender IdentityNot on fileSexual OrientationNot on file Plan of Treatment DateTypeDepartmentCare Team (Latest Contact Info)Wlnxkxmlqgi25/20/2026 9:00 AM ESTOffice Visit [address] [id number] Crispin Hurst MD [address] [place] [address] Left hip pain [M25.552], referred by Dr. Conley at [facility]; Patient will bring in Xrays and MRIHealth MaintenanceDue Date Last DoneCommentsAnxiety Mivtvskgt02/15/1999Depression Rstowqkfr99/15/1999HIV Ioijaoxos72/15/1999Hepatitis C Cqczitucw18/15/1999DTaP,Tdap,Td Vaccine (1 - Tdap)2000Hepatitis B Vaccine (1 of 3 - 19+ 3-dose series)2000 Cervical Cancer Urpooclni14/15/2002HPV Vaccine (1 - 3-dose SCDM series) 2008Mammogram Itktkgzmg04/15/2021ovid-19 Vaccine (2024- season) 2025Influenza Vaccine (#1)2025 Insurance * Guarantor: Karen FosterAccount TypeRelation to PatientDate of PhoneBilling AddressPersonal/OkheowJhwj1980 [address] [address] Care Teams Team MemberRelationshipSpecialtyStart DateEnd Date Greyson Conley DO [address] [place] [address] BhjaecotcOcuystiyazb81/2/25
--- OUTSIDE RECORDS SUMMARY | 2025-05-16 20:41 | XMS_ITS | Clinical Summary ---
Author Organization [facility] [place] [address] Care Team Providers Care Flag Signaler Name Role Phone Unavailable Primary Care Provider Unavailabl e Medications No known medications Active Problems ProblemNoted DateDiagnosed DateAcetabular labrum tear, left, initial encounter 05/10/2025 Encounters DateTypeDepartmentCare BrfeKtggjtzyeyh39/17/2025Orders Only [address] [place] [address] Malou Nguyễn RN Acetabular labrum tear, left, initial encounter (Primary Dx)05/09/2025 10:25 AM ESTLab [facility] Draw Station [address] [place] [address] [place] [address] Pre-op swmtirn1505/09/2025 9:40 AM ESTOffice Visit [address] [place] [address] Neil Abernathy MD Pre-op testing (Primary Dx); Acetabular labrum tear, left, initial cmilaaxnd70/16/2025 - 05/09/2025 11:59 PM ESTHospital Encounter [facility] Radiology External Films [address] [place] [address] Discharge Disposition: Home or Self Care (01)05/09/2025Orders Only [address] [place] [address] Aline Deras MA from Last 3 Months Social History Tobacco UseTypesPacks/DayYears UsedDateSmoking Tobacco: Never Assessed CommentsUnknownSex and Gender InformationValueDate RecordedSex Assigned at Sryrty0504/27/2025 1:15 PM ESTLegal TcqPyiprw52/04/2025 1:13 PM ESTGender Identity Cnenhd0004/27/2025 1:15 PM ESTSexual OrientationChoose not to jdxnawfn40/04/2025 1:15 PM EST Last Filed Vital Signs Vital SignReadingTime TakenCommentsBlood Pressure--Pulse--Temperature-- Respiratory Rate--Oxygen Saturation--Inhaled Oxygen Concentration--Etfnaz04.8 kg (165 lb)05/09/2025 9:50 AM QGFOftdhk998.7 cm (5' 8 )05/09/2025 9:50 AM ESTBody Mass Index25.0905/09/2025 9:50 AM EST Plan of Treatment DateTypeDepartmentCare Team (Latest Contact Info)Bmjfrnhpune93/29/2026 7:30 AM ESTHospital Encounter [address] [place] [address] Neil Abernathy MD [address] [place] [address] 06/22/2025 7:30 AM EST - 06/22/2025 9:00 [address]gery [address] [place] [address] Neil Abernathy MD [address] [place] [address] HIP ARTHROSCOPY WITH LABRUM REPAIR [[id number] (CPT??)]06/26/2025 10:10 AM ESTOffice Visit [facility] [address] [place] [address] [place] [address] Neil Abernathy MD [address] [place] [address] NamePriorityAssociated DiagnosesDate/TimeARTHROSCOPY,HIP WITH LABRUM REPAIR Acetabular labrum tear, left, initial encounter 06/22/2025 7:30 AM ESTHealth MaintenanceDue DateLast DoneCommentsDepression Knrxcnzjg58/15/1993Varicella Vaccines (1 of 2 - 13+ 2-dose series)1994 Hepatitis B Vaccines (1 of 3 - 19+ 3-dose series)2000Adult Tetanus 2003HPV Vaccines (1 - 3-dose SCDM series)2008HPV/Lcsdzm1704/08/2011 Vinuaclov87/15/2021Influenza Vaccine (#1)/08/2023, 03/09/2020, 03/10/2018, Additional history existsCervical Cancer Cmnjcjsld34/17/2027Pap SmearZoster Vaccines (1 of 2)2031HIB VaccinesAged Out No longer eligible based on patient's age to complete this topicIPV VaccinesAged OutNo longer eligible based on patient's age to complete this topicMeningococcal B VaccineAged OutNo longer eligible based on patient's age to complete this topicMeningococcal VaccineAged OutNo longer eligible based on patient's age to complete this topicPneumococcal Vaccine: Pediatrics (0 to 5 Years) and At-Risk Patients (6 to 64 Years)Aged OutNo longer eligible based on patient's age to complete this topicRotavirus VaccinesAged OutNo longer eligible based on patient's age to complete this topic Procedures Procedure NamePriorityDate/TimeAssociated DiagnosisCommentsMRSA/MSSA DNA NASAL Duzuivq0205/09/2025 10:21 AM EST Pre-op testing MR TRANSFER OF OUTSIDE ZZKGIJfjsrzw46/16/2025 12:00 AM EST from Last 3 Months Results * MRSA/MSSA DNA Nasal (05/09/2025 10:21 AM EST)ComponentValueRef RangeTest MethodAnalysis TimePerformed AtPathologist SignatureMSSA DNANegativeNegative 05/09/2025 3:28 PM [facility] ([employer])MRSA DNANegativeNegative 05/09/2025 3:28 PM [facility] ([employer])Specimen (Source)Anatomical Location / LateralityCollection Method / VolumeCollection TimeReceived Time SwabNasal structure / UnknownNon-blood Collection / Xepuosq1305/09/2025 10:21 AM EST05/09/2025 10:24 AM EST Narrative [facility] MARISSA) - 05/09/2025 3:28 PM EST Testing methodology [...] GENERAL ORDERABLESFinal ResultPerforming OrganizationAddressCity/State/ZIP Code Phone Number [facility] ([place]) [address] [place] [address] * MR transfer of outside films (05/09/2025 12:00 AM EST)Specimen (Source) Anatomical Location / LateralityCollection Method / VolumeCollection Time Received Time Narrative IMAGING - 05/09/2025 4:23 PM EST This order has been auto-finalized and does not contain a result. Authorizing ProviderResult TypeResult StatusDavid Josemanuel DSOUZAG MRI PROCEDURESFinal ResultPerforming OrganizationAddressCity/State/ZIP CodePhone Number IMAGING from Last 3 Months Insurance * Guarantor: Karen FosterAccount TypeRelation to PatientDate of PhoneBilling AddressPersonal/MfhhkuYsnw1980 [address] [address]
--- OUTSIDE RECORDS SUMMARY | 2025-05-16 20:41 | XMS_ITS | Clinical Summary ---
Author Organization [employer] [facility] Address [id number] [address] [place] [address] Care Team Providers Care District Agent Name Role Phone No Pcp, No Pcp Primary Care Provider Unavailabl e Social History Tobacco UseTypesPacks/DayYears UsedDateSmoking Tobacco: Never AssessedChildcare AnswerDate BflabbnpMsepxzeyuNzbdykw65/12/2019EmploymentAnswerDate Recorded QwdjzwariiVpibzkw02/12/2019CommentsUnknownSex and Gender Information ValueDate RecordedSex Assigned at BirthNot on fileLegal YvgAowjlt33/06/2015 12:07 PM EDTGender IdentityNot on fileSexual OrientationNot on file Last Filed Vital Signs Vital SignReadingTime TakenCommentsBlood Fawsjbte376/8103 7:45 PM EDT Cknum53657/14/2016 7:45 PM EDTTemperature--Respiratory Rate--Oxygen Saturation-- Inhaled Oxygen Concentration--Thejuo98 kg (150 lb)08/06/2015 7:45 PM EDTHeight 152.4 cm (5')08/06/2015 7:45 PM EDTBody Mass Index29.29008/06/2015 7:45 PM EDT Plan of Treatment Not on file Medical Devices Not on file Care Teams Team MemberRelationshipSpecialtyStart DateEnd Date No Pcp, [place] [address] PCP - General06/29/14
--- OUTSIDE RECORDS SUMMARY | 2025-05-16 20:41 | XMS_ITS | Encounter Summary ---
Author Organization [facility] Address [address] [place] [address] Care Team Providers Care Respiratory Medicine Physician Name Role Phone Unavailable Primary Care Provider Unavailabl e Encounter Details DateTypeDepartmentCare Team (Latest Contact Info)Wvrpovhqmix63/17/2025Orders Only [facility] [address] [place] [address] [place] [address] Malou Nguyễn RN Acetabular labrum tear, left, initial encounter (Primary Dx) Social History Tobacco UseTypesPacks/DayYears UsedDateSmoking Tobacco: Never Assessed CommentsUnknownSex and Gender InformationValueDate RecordedSex Assigned at Ynblec7904/27/2025 1:15 PM ESTLegal IlzIngxmu19/04/2025 1:13 PM ESTGender Identity Bshlzk6404/27/2025 1:15 PM ESTSexual OrientationChoose not to ritsgvmt08/04/2025 1:15 PM ESTdocumented as of this encounter Plan of Treatment DateTypeDepartmentCare Team (Latest Contact Info)Pbhpnbbxxdk69/29/2026 7:30 AM ESTHospital Encounter [facility] Invasive Surgery [address] [place] [address] Neil Abernathy MD [address] [place] [address] 06/22/2025 7:30 AM EST - 06/22/2025 9:00 AM ESTSurgery [facility] In[facility] [address] [place] [address] Neil Abernathy MD [address] [facility] [place] [address] HIP ARTHROSCOPY WITH LABRUM REPAIR [[id number] (CPT??)]06/26/2025 10:10 AM ESTOffice Visit [facility]ics [address] [place] [address] [place] [address] Neil Abernathy MD [address] [facility] [place] [address] NamePriorityAssociated DiagnosesDate/TimeARTHROSCOPY,HIP WITH LABRUM REPAIR Acetabular labrum tear, left, initial encounter 06/22/2025 7:30 AM ESTdocumented as of this encounter Visit Diagnoses Diagnosis Acetabular labrum tear, left, initial encounter- Primary Acetabular labrum tear, left, initial encounter- Primary Acetabular labrum tear, left, initial encounter documented in this encounter
--- OUTSIDE RECORDS SUMMARY | 2025-05-16 20:41 | XMS_ITS | Patient Health Record ---
Author Organization [facility] Address [address] [place] [address] Care Team Providers Care Department Helper Name Role Phone None, Unknown or Primary Care Provider UnavailKeenan Tong Unavailable [phone] Allergies No Known Allergies Reason For Referral [...] Vital Signs Heart Rate 97 /min 05/31/2024 Zbzjvqlvfcn52.7 degrees Esbavuqmwt90/07/0530Ttljhgef35 %05/31/20240675Utmntg47 in 05/31/2024 Encounters Encounter Location Date Provider Diagnosis [facility] ([facility]OD[facility]) [address] [place] [address] [place] [address] 05/31/2024 Keenan Padilla Achilles tendinitis, left leg M76.62 Assessments Encounter Date Diagnosis (ICD Code) Assessment Notes Treatment Notes Treatment Clinical Notes Section Notes 05/31/2024 Achilles tendinitis, left leg (I CD-10 - M76.62) Patient is doing very well after Achilles tendon surgery performed just over 2 months ago. She may continue to increase her activities as she tolerates including impact exercise. OTC pain medicine and NSAIDs as needed. Follow-up in 3 months or as needed Plan Of Treatment No Information Insurance Providers Payer Name Payer Address Payer Phone Subscriber Number Group Number Insured Name Patient Relationship to Insured Coverage Start Date Coverage End Date [facility] [employer] [address] [place] [address] [id number] Gareth Foster Spouse - patient is the spouse of the insured Medical (General) History Surgical History Surgery Date(Month/Year) Left knee scope x2 Hysterectomy 2009 Right oopherectomy 2017 left posterior ankle arthrot avery with synovectomy, gastronemius recessionand tendolysis of Achilles tendon Dr Padilla 03/24/24
--- OUTSIDE RECORDS SUMMARY | 2025-05-16 20:41 | XMS_ITS | Encounter Summary ---
Author Organization [facility] Address [address] [place] [address] Care Team Providers Care Lead Injection Mold Technician Name Role Phone Unallocated, Noms Provider Primary Care Provi malathi Encounter Details DateTypeDepartmentCare Team (Latest Contact Info)Xlwttzdciho57/23/2025amboo flowsheet [facility] [place] [address] Alma Grimm PA [address] [place], [place] [address] Social History Tobacco UseTypesPacks/DayYears UsedDateSmoking Tobacco: NeverSmokeless Tobacco: NeverAlcohol UseStandard Drinks/WeekCommentsNot Currently0 (1 standard drink = 0.6 oz pure alcohol)Caffeine intake: coffee, energy drink 1-2 cups per day AUDIT-CAnswerDate RecordedQ1: How often do you have a drink containing alcohol? 2-4 times a month05/02/2023verage Number of DrinksNot on file05/02/2023 Frequency of Binge DrinkingNot on file05/02/2023CommentsNoSex and Gender InformationValueDate RecordedSex Assigned at BirthNot on fileLegal SexFemale 08/06/2022 6:52 PM EDTGender IdentityNot on fileSexual OrientationNot on file documented as of this encounter Plan of Treatment DateTypeDepartmentCare Team (Latest Contact Info)Yanklvweqxh13/29/2026 9:00 AM ESTProcedure Visit MASOOD GOODWIN [address] [facility] [place] [address] Alma Grimm PA [address] [place] [address] [place] [address] documented as of this encounter Visit Diagnoses Not on filedocumented in this encounter Care Teams Team MemberRelationshipSpecialtyStart DateEnd Date Unallocated, Noms Provider, [place] [address] PCP - GeneralFamily Medicine11/15/24documented as of this encounter
--- OUTSIDE RECORDS SUMMARY | 2025-05-16 20:41 | XMS_ITS | Encounter Summary ---
Author Organization [facility] Address [address] [place] [address] Care Team Providers Care Tractor Operator Laser Leveling Name Role Phone Unavailable Primary Care Provider Unavailabl e Encounter Details DateTypeDepartmentCare Team (Latest Contact Info)Mjlmwzmfvzn81/16/2025Orders Only [facility] [address] [place] [address] [place] [address] Aline Deras MA Social History Tobacco UseTypesPacks/DayYears UsedDateSmoking Tobacco: Never Assessed CommentsUnknownSex and Gender InformationValueDate RecordedSex Assigned at Motxks1504/27/2025 1:15 PM ESTLegal ZujHfjwdd00/04/2025 1:13 PM ESTGender Identity Fhsupw6804/27/2025 1:15 PM ESTSexual OrientationChoose not to fltirepp95/04/2025 1:15 PM ESTdocumented as of this encounter Plan of Treatment DateTypeDepartmentCare Team (Latest Contact Info)Yjrjntnddcf00/29/2026 7:30 AM ESTHospital Encounter [facility] Invasive Surgery [address] [place] [address] Neil Abernathy MD [address] [place] [address] 06/22/2025 7:30 AM EST - 06/22/2025 9:00 [address] [place] [address] Neil Abernathy MD [address] [place] [address] HIP ARTHROSCOPY WITH LABRUM REPAIR [[id number] (CPT??)]06/26/2025 10:10 AM ESTOffice Visit [facility] Orth[facility] [address] [place] [address] [place] [address] Neil Abernathy MD [address] [place] [address] NamePriorityAssociated DiagnosesDate/TimeARTHROSCOPY,HIP WITH LABRUM REPAIR Acetabular labrum tear, left, initial encounter 06/22/2025 7:30 AM ESTdocumented as of this encounter Results * MR transfer of outside films (05/09/2025 12:00 AM EST)Specimen (Source) Anatomical Location / LateralityCollection Method / VolumeCollection Time Received Time Narrative IMAGING - 05/09/2025 4:23 PM EST This order has been auto-finalized and does not contain a result. Authorizing ProviderResult TypeResult StatusDavid Josemanuel FLORESIMG MRI PROCEDURESFinal ResultPerforming OrganizationAddressCity/State/ZIP CodePhone Number IMAGING documented in this encounter Visit Diagnoses Not on filedocumented in this encounter
--- OUTSIDE RECORDS SUMMARY | 2025-05-16 20:41 | XMS_ITS | Clinical Summary ---
Author Organization [facility] Address [address] [place] [address] Care Team Providers Care Scientist/Engineer Name Role Phone Unallocated, Noms Provider Primary [...] Active Problems ProblemNoted DateDiagnosed DateMigraine aura without /02/2024 Encounters DateTypeDepartmentCare IyjqXajuypblsfz37/23/2025 9:00 AM ESTOffice Visit [facility] [address] [place] [address] Alma Jim PA Well woman exam with routine gynecological exam; Encounter for screening mammogram for malignant neoplasm of dfeezv1205/16/2025 Bamboo flowsheet [facility] [address] [place] [address] Alma Jim PA from Last 3 Months Family History Medical HistoryRelationNameCommentsCOPDFatherCancerFatherDiabetesFatherHeart [...] Date RecordedSex Assigned at BirthNot on fileLegal YjfAmchdf09/15/2023 6:52 PM EDTGender IdentityNot on fileSexual OrientationNot on file Last Filed Vital Signs Vital SignReadingTime TakenCommentsBlood Hqvnnzmd701/7205/16/2025 9:05 AM EST Rczlm5376 3:00 PM RPTSzbnidydqim72.1 ??C (97 ??F)08/25/2023 3:00 PM EDT Respiratory Vktr040708/25/2023 3:00 PM EDTOxygen Xxlptjoyjm72%08/25/2023 3:00 PM EDTInhaled Oxygen Concentration--Aiyamv00.6 kg (171 lb)05/16/2025 9:05 AM EST Ygcwdw786.7 cm (5' 8 )12/16/2023 8:03 AM EDTBody Mass Vujas9640/24/2024 8:03 AM EDT Plan of Treatment DateTypeDepartmentCare Team (Latest Contact Info)Dlgjxannbgx06/29/2026 9:00 AM ESTProcedure Visit [facility] [address] [place] [address] Alma Jim PA [address] [place], [place] [id number] (work) Health MaintenanceDue DateLast RazxJdbrlkxfCwukrfrcu00/20/89523307/14/2022, 05/13/2023Influenza Vaccine (#1)510/08/2023, 03/09/2020, 03/10/2018 Cervical Cancer ScreeningDiscontinuedPap JrytkUqaccaumtpcq53/17/2024HPV/Cotest DiscontinuedPneumococcal Vaccine: Pediatrics (0 to 5 Years) and At-Risk Patients (6 to 64 Years)Aged OutNo longer eligible based on patient's age to complete this topic Procedures Procedure NamePriorityDate/TimeAssociated DiagnosisCommentsPAP SMEARRoutine 05/10/2024 12:00 [...] EST Narrative 05/13/2023 11:28 AM EST [facility] ?[address] ? [place] [address] ? Mammography Report ? Signed ? Patient: DUKESHIRE,LEXUS D ?MR#: [id number] ?? : 1980 ?Acct:[id number] ?? Age/Sex: 43 / F ?ADM Date: 12/20/23 ?? Loc: MAMMO ? Attending Dr: Alma Jim ? Ordering Physician: Alma iJm ?Results: ? Date of Service: 05/13/23 ?Follow Up: ? Procedure(s): MM tomosynthesis screening BI ?? Accession Number(s): [id number] ? cc: Alma Jim; Physician,Non-Staff M.D. ? Patient Name: ? LEXUS DUKEPENNY ? MR#: [id number] ? : 1980 ? Exam Date: 05/13/2023 [...] Cancers ? None ? LOCATION: ? [facility] ? BREAST COMPOSITION: ? Scattered areas [...] By: ?Neil Padilla M.D. ? Signed By: ?12/20/23 1128 ? DD/ 1127 ? TD/TT: ? Patient Care Coordinator: Procedure Note Radiology, Radiologist, MD - 05/13/2023 [facility] [place] [id number] Mammography Report Signed Patient: LEXUS FOSTER DMR#: [id number] : 1980Acct:[id number] Age/Sex: 43 / FADM Date: 05/13/23 Loc: MAMMO Attending Dr: Alma Jim Ordering Physician: Alma JimResults: Date of Service: 05/13/23Follow Up: Procedure(s): MM tomosynthesis screening BI Accession Number(s): [id number] cc: Alma Jim; Physician,Non-Staff M.D. Patient Name: LEXUS FOSTER MR#: [id number] : 1980 Exam Date: 05/13/2023 Ordering Doctor: ARIEL JIM . RADIOLOGY REPORT PROCEDURE: MM TOMOSYNTHESIS SCREENING BI COMPARISON: MG MAMM SCREEN 3D [place] CAD, 11/16/2020. INDICATIONS: screening Calculator Name NCI Breast Cancer Risk Assessment Tool 5 Year Breast Cancer Risk Not Reported. Lifetime Breast Cancer Risk Not Reported. Personal Breast Cancer No Personal Ovarian Cancer No Treatments None Family Cancers None LOCATION: [facility] BREAST COMPOSITION: Scattered areas fibroglandular density. [...] M.D. Signed By:05/13/23 1128 DD/ 1127 TD/TT: Patient Care Coordinator: Authorizing ProviderResult TypeResult StatusAmy [place] PACLINISYNC IMAGINGFinal Result from Last 3 Months or Most Recently Relevant to Health Maintenance Insurance * Guarantor: Lexus Foster DAccount TypeRelation to PatientDate of PhoneBilling AddressPersonal/DemtgdPonz1980 [address] [address] Care Teams Team MemberRelationshipSpecialtyStart DateEnd Date Unallocated, Noms Provider, [address] [place] [address] PCP - GeneralFamily Medicine11/15/24
[2025-05-19 21:08] LABS: Age Gdln ACOG Testing Note (.); IGP, Aptima HPV, rfx 16/18,45 Note (.)
== END 2025-05-16 20:37 | disposition home or self-care (01) ==
LOC: LAB 20:36
PROVIDERS: Visit Provider Physician Assistant
DX: Z01.419 Encounter for gynecological examination (general) (routine) without abnormal findings (principal)
CPT/HCPCS: 88175